=== PATIENT | female | born 1930 | race Caucasian/White ===

== ENCOUNTER → 2016-03-29 | Outpatient (CLI) | payer OTHER, MEDICARE ==
[~2016-03-29] MED LIST: ACET325T96 PO; ACET650S10 PR; ALEN70TA4 PO; BISA10SU38 PR; CHOL20009 PO; CYAN10005 PO; FERR1TAB13 PO; FERR325T51 PO; GLIM4TAB2 PO; INSDGI SC; INSUINJ4 SQ; LEVO1TAB PO; LOSA1TAB38 PO; MAGN400T6 PO; METF-383 PO; METO10SO PO; METO1TAB31 PO; METO5SOL PO; MOML PO; PANT40TA PO; POLY1POW2 PO; RBTDMUDL5 PO; SERT-234 PO; SERT25TA PO; SODIENE PR; SPIR25TA PO; SYN150 PO; WARF-283 PO; WARF2TAB8 PO; WARF4TAB8 PO; WARF5TAB7 PO
[2016-03-29 08:24] LABS: HEMATOCRIT 42.5 % (37-47); MEAN CORPUSCULAR HEMOGLOBIN 29.1 pg (25-34); MEAN PLATELET VOLUME 10.6 fL (7.4-10.4); PLATELET COUNT 184 K/uL (130-400); RED BLOOD COUNT 4.67 M/uL (4.2-5.4); WHITE BLOOD COUNT 7.57 K/uL (4.8-10.8)
== END | disposition home or self-care (01) ==
LOC: C.LABFOXDH 08:03
PROVIDERS: ATTEND Internal Medicine
DX: D50.9 Iron deficiency anemia, unspecified (principal)

== ENCOUNTER 2016-04-03 12:26 | Inpatient (IN) | payer OTHER, MEDICARE ==
[~2016-04-03] VITALS: Ht 165.1 cm; Wt 96.9 kg
[~2016-04-03 12:26] MED LIST changes: -FERR1TAB13 PO; -INSDGI SC; -METO5SOL PO; -RBTDMUDL5 PO; -SYN150 PO; -WARF2TAB8 PO; -WARF4TAB8 PO; -WARF5TAB7 PO
[2016-04-03] MEDS ORDERED: DILTIAZEM HCL 5 MG/ML 5 ML VIAL ONE (13:07)
[2016-04-03] MEDS ORDERED: SODIUM CHLORIDE 0.9% 250ML 250 ML IV STA (13:19)
[2016-04-03] MEDS ORDERED: SODIUM CHLORIDE 0.9% 1000ML 1,000 ML IV STA (13:19)
[2016-04-03 13:24] LABS: HEMATOCRIT 43.5 % (37-47); MEAN CELL VOLUME 89.9 fL (80-100); MEAN CORPUSCULAR HEMOGLOBIN 29.3 pg (25-34); MEAN CORPUSCULAR HGB CONC 32.6 g/dl (32-36); MEAN PLATELET VOLUME 10.2 fL (7.4-10.4); PLATELET COUNT 158 K/uL (130-400); RED BLOOD COUNT 4.84 M/uL (4.2-5.4); WHITE BLOOD COUNT 9.09 K/uL (4.8-10.8)
[2016-04-03 13:26] LABS: ISTAT CREATININE 0.8 mg/dl (0.6-1.3); ISTAT HEMOGLOBIN 14.6 g/dl (12.0-16.0); ISTAT IONIZED CALCIUM 1.44 mmol/l (1.12-1.32)
[2016-04-03 13:37] LABS: INR 2.9 (0.9-1.1); PARTIAL THROMBOPLASTIN RATIO 1.3; PROTHROMBIN TIME (PATIENT) 32.8 SECONDS (9.0-12.0)
[2016-04-03 13:42] LABS: BUN/CREATININE RATIO 25.3 (10-20); CALCIUM 10.4 mg/dl (8.5-10.1); CREATININE 0.95 mg/dl (0.60-1.20); POTASSIUM 4.1 mmol/L (3.5-5.1)
[2016-04-03 13:47] LABS: ALB/GLOB RATIO 0.9 (0.9-2)
--- NOTE | 2016-04-03 13:47 | DIAGNOSTIC IMAGING REPORT ---
CHEST ONE VIEW PORTABLE CLINICAL HISTORY: Atypical chest pain COMPARISON STUDY: 08/16/2015 FINDINGS: The heart is mildly enlarged. There is no overt failure. There is no lobar consolidation. There is a calcified left basilar granuloma. There is a 13 mm right midlung zone density partially obscured by overlying cardiac leads. IMPRESSION: 1. No evidence of focal pulmonary consolidation 2. Equivocal right midlung zone nodule partially obscured by overlying cardiac leads Electronically signed by: Benjamin Vann M.D. 04/03/2016 1:45 PM Dictated Date/Time: 04/03/2016 1:43 PM
[2016-04-03] MEDS ORDERED: WARF2TAB8 PO (14:00)
[2016-04-03] MEDS ORDERED: WARF5TAB7 PO ×2 (14:00)
[2016-04-03] MEDS ORDERED: METOPROLOL SUCC 25MG EXT REL TAB PO STA (14:11)
[2016-04-03] MEDS ORDERED: MAGNESIUM SULFATE 1GM / D5W 1 GM BAG IV STA (14:55)
[2016-04-03] MEDS ORDERED: ACETAMINOPHEN 650 MG SUPP PR PRN (16:45)
[2016-04-03] MEDS ORDERED: WARFARIN SOD 5 MG TAB PO SCH (16:45)
[2016-04-03] MEDS ORDERED: WARFARIN SOD 2 MG TAB PO SCH (16:45)
[2016-04-03] MEDS ORDERED: GLUCAGON FOR INJ 1 MG VIAL SQ PRN (16:45)
[2016-04-03] MEDS ORDERED: DEXTROSE 50% 50 ML SYR IV PRN (16:45)
[2016-04-03] MEDS ORDERED: ACETAMINOPHEN 325 MG TAB PO PRN (16:45)
[2016-04-03] MEDS ORDERED: ALUMINUM/MAGNESIUM/SIMETH (MAALOX MAX) 30 ML UDC PO PRN (16:45)
[2016-04-03] MEDS ORDERED: GLUCOSE 10 TABS/TUBE PO PRN (16:45)
[2016-04-03] MEDS ORDERED: GLUCOSE 40% GEL 15 GM TUBE PO PRN (16:45)
[2016-04-03] MEDS ORDERED: ONDANSETRON INJ 2 MG/ML 2 ML VIAL IV PRN (16:45)
--- NOTE | 2016-04-03 17:28 | EMERGENCY ROOM VISIT NOTE ---
History Report prepared by Omar: Dick Zheng Under the Supervision of: Dr. Eduardo Brambila M.D. First contact with patient: 13:08 Chief Complaint: CARDIAC ASSESSMENT Stated Complaint: A-FIB Nursing Triage Summary: PT HERE WITH EPISODE OF RAPID HEARTRATE WHILE AT [facility] TODAY, UP TO 170 PER STAFF. PT DENIES ANY SX, NO CHEST PAIN OR SOB. PT STATES STAFF HAS NOT BEEN GIVING HER HER MEDS. STAFF REPORTS PT IS ASLEEP WHEN SHE IS TO GET MEDS OR REFUSES MEDS History of Present Illness The patient is a 85 year old female who presents to the Emergency Room with complaints of a high heart rate starting earlier today. The patient states that she is currently in minimal discomfort. The nursing staff states that the patient was at [facility], and her heart rate was 170 bpm this morning. The nursing staff additionally states that the patient has not taken her medications for the past ten days. The patient additionally states that her appetite has been so-so recently. She notes nausea, vomiting and diarrhea that was occurring last night and this morning. Pt denies LOC, headache, fevers, chills, diaphoresis, visual changes, neck pain, chest pain, breathing difficulties, abdominal pain, back pain, melena, hematochezia, urinary symptoms , numbness, weakness, lymphadenopathy, rash, or other complaints. Source of History: patient, nursing staff Onset: this morning Position: other (global) Symptom Intensity: minimal Quality: other (high heart rate) Review of Systems See HPI for pertinent positives and negatives. A total of ten systems were reviewed and were otherwise negative. Past Medical & Surgical Medical Problems: (1) Asthmatic bronchitis with acute exacerbation (2) Atrial fibrillation (3) Atrial tachycardia (4) Atrial tachycardia (5) Bronchitis (6) Contusion of multiple sites (7) Dementia (8) Diabetes mellitus type 2 (9) Fall (10) Femur fracture, right (11) Hypomagnesemia (12) Hypothyroidism (13) Hypoxemia (14) Palpitations Family History Patient reports no known family medical history. Social History Smoking Status: Never Smoker Alcohol Use: none Drug Use: none Marital Status: Housing Status: [facility] Occupation Status: retired Current/Historical Medications Scheduled Alendronate Sodium (Fosamax), 70 MG PO WK Cholecalciferol (Vitamin D), 2,000 UNITS PO DAILY Cyanocobalamin (Vitamin B-12), 1,000 MCG PO DAILY Ferrous Sulfate (Iron Supplement), 1 TAB PO BID Glimepiride (Glimepiride), 4 MG PO BID Insulin Glargine (Lantus Solostar Pen), 25 UNITS SQ HS Levothyroxine Sodium (Synthroid), 0.137 MG PO DAILY Losartan Potassium (Cozaar), 100 MG PO DAILY Magnesium Oxide (Mag-Ox), 400 MG PO BID Metformin Hcl (Glucophage), 850 MG PO BID Metoclopramide Hcl (Reglan), 2.5 MG PO BID Metoprolol Succinate (Toprol Xl), 25 MG PO BID Pantoprazole (Protonix), 40 MG PO DAILY Polyethylene Glycol 3350 (Bulk (Polyethylene Glycol 3350), 17 GM PO DAILY Sertraline (Zoloft), 100 MG PO DAILY Sertraline Hcl (Zoloft), 25 MG PO DAILY Spironolactone (Aldactone), 12.5 MG PO DAILY Warfarin Sod (Jantoven), 2 MG PO 6XWK Warfarin Sod (Jantoven), 5 MG PO WK Warfarin Sod (Jantoven), 2.5 MG PO 6XWK Scheduled PRN Acetaminophen (Tylenol), 650 MG UT Q4 PRN for Pain or Fever Acetaminophen Tab (Tylenol), 650 MG PO Q4 PRN for PAIN 1-5 OR FEVER Bisacodyl (Dulcolax), 1 SUPP UT DAILY PRN for Constipation Magnesium Hydroxide (Milk Of Magnesia), 30 ML PO Q2D PRN for NO BM Sodium Phosphate/Biphosphate (Fleet Enema), 1 EA UT Q3D PRN for NO BM/NO RESULTS FROM MOM/SUPP Allergies Coded Allergies: Epinephrine (Verified Allergy, Mild, INCREASE HEART RATE, 04/03/16) Medroxyprogesterone (Verified Allergy, Unknown, ., 04/03/16) Physical Exam Vital Signs Date Time Temp Pulse Resp B/P Pulse Ox O2 Delivery O2 Flow Rate FiO2 04/03/16 14:59 90 16 123/66 04/03/16 14:19 90 16 127/74 98 Room Air 04/03/16 14:11 94 04/03/16 14:10 175 04/03/16 14:02 89 20 112/70 04/03/16 13:20 93 16 127/71 95 Room Air 04/03/16 13:18 98 04/03/16 13:10 180 04/03/16 13:05 95 Room Air 04/03/16 13:05 95 Room Air 04/03/16 13:03 179 16 99/73 04/03/16 12:38 36.6 97 18 114/87 97 Room Air Physical Exam GENERAL: Awake, alert, tired appearing, in no distress HENT: Normocephalic, atraumatic. Oropharynx unremarkable. EYES: Normal conjunctiva. Sclera non-icteric. NECK: Supple. No nuchal rigidity. FROM. No JVD. RESPIRATORY: Clear to auscultation. CARDIAC: Extremely tachycardic rate, normal rhythm. Extremities warm and well perfused. Pulses equal. ABDOMEN: Soft, non-distended. No tenderness to palpation. No rebound or guarding. No masses. RECTAL: Deferred. MUSCULOSKELETAL: Chest examination reveals no tenderness. The back is symmetrical on inspection without obvious abnormality. There is no CVA tenderness to palpation. No joint edema. LOWER EXTREMITIES: Calves are equal size bilaterally and non-tender. No edema. No discoloration. NEURO: Normal sensorium. No sensory or motor deficits noted. SKIN: No rash or jaundice noted. Medical Decision & Procedures ER Provider Diagnostic Interpretation: X-ray: Per my interpretation, radiologist review. CHEST ONE VIEW PORTABLE CLINICAL HISTORY: Atypical chest pain COMPARISON STUDY: 08/16/2015 FINDINGS: The heart is mildly enlarged. There is no overt failure. There is no lobar consolidation. There is a calcified left basilar granuloma. There is a 13 mm right midlung zone density partially obscured by overlying cardiac leads. IMPRESSION: 1. No evidence of focal pulmonary consolidation 2. Equivocal right midlung zone nodule partially obscured by overlying cardiac leads Electronically signed by: Benjamin Vann M.D. 04/03/2016 1:45 PM Dictated Date/Time: 04/03/2016 1:43 PM Laboratory Results 04/03/16 13:05 04/03/16 13:05 Test 04/03/16 13:05 04/03/16 13:07 04/03/16 13:14 Red Blood Count 4.84 M/uL (4.2-5.4) Mean Corpuscular Volume 89.9 fL (80-100) Mean Corpuscular Hemoglobin 29.3 pg (25-34) Mean Corpuscular Hemoglobin Concent 32.6 g/dl (32-36) RDW Standard Deviation 47.3 fL (36.4-46.3) RDW Coefficient of Variation 14.4 % (11.5-14.5) Mean Platelet Volume 10.2 fL (7.4-10.4) Prothrombin Time 32.8 SECONDS (9.0-12.0) Prothromb Time International Ratio 2.9 (0.9-1.1) Activated Partial Thromboplast Time 35.0 SECONDS (21.0-31.0) Partial Thromboplastin Ratio 1.3 Est Creatinine Clear Calc Drug Dose 51.4 ml/min Estimated GFR () 63.7 Estimated GFR (Non- 55.0 BUN/Creatinine Ratio 25.3 (10-20) Calcium Level 10.4 mg/dl (8.5-10.1) Magnesium Level 1.5 mg/dl (1.8-2.4) Total Bilirubin 0.5 mg/dl (0.2-1) Aspartate Amino Transf (AST/SGOT) 16 U/L (15-37) Alanine Aminotransferase (ALT/SGPT) 17 U/L (12-78) Alkaline Phosphatase 73 U/L (45-117) Total Creatine Kinase 91 U/L (26-192) Creatine Kinase MB 0.9 ng/ml (0.5-3.6) Creatine Kinase MB Ratio 1.0 (0-3.0) Total Protein 6.4 gm/dl (6.4-8.2) Albumin 3.1 gm/dl (3.4-5.0) Globulin 3.3 gm/dl (2.5-4.0) Albumin/Globulin Ratio 0.9 (0.9-2) Bedside Hemoglobin 14.6 g/dl (12.0-16.0) Bedside Hematocrit 43 % (37-47) Bedside Sodium 141 mEq/L (135-144) Bedside Potassium 4.1 mEq/L (3.3-5.0) Bedside Chloride 105 mEq/L (101-112) Bedside Total CO2 20 mEq/l (24-31) Anion Gap 21.0 mmol/L (16-25) Bedside Blood Urea Nitrogen 24 mg/dl (7-18) Bedside Creatinine 0.8 mg/dl (0.6-1.3) Bedside Glucose (other) 296 mg/dl (70-99) Bedside Ionized Calcium (Julien) 1.44 mmol/l (1.12-1.32) Bedside Troponin I 0.030 ng/ml (0-0.045) Laboratory results reviewed by me Medications Administered Medications (Trade) Dose Ordered Sig/Angel Route Start Time Stop Time Status Last Admin Dose Admin Diltiazem HCl 25 mg 25 mg STK-MED ONCE .ROUTE 04/03/16 13:07 04/03/16 13:08 DC 04/03/16 13:12 5 MG Sodium Chloride 250 ml @ 999 mls/hr Q16M STAT IV 04/03/16 13:19 04/03/16 13:34 DC 04/03/16 13:20 999 MLS/HR Sodium Chloride (Nss 1000ml) 1,000 ml @ 125 mls/hr Q8H STAT IV 04/03/16 13:19 04/03/16 21:18 04/03/16 13:20 125 MLS/HR Metoprolol Succinate (Toprol Xl Tab) 25 mg NOW STAT PO 04/03/16 14:11 04/03/16 14:13 DC 04/03/16 14:30 25 MG Magnesium Sulfate (Magnesium Sulfate) 2 gm NOW STAT IV 04/03/16 14:55 04/03/16 14:56 DC 04/03/16 15:41 2 GM ECG Indication: tachycardia Rate (beats per minute): 98 Rhythm: normal sinus Findings: LAFB, other (Old anterior infarct) ED Course 1307: Cardizem Inj 5mg IV 1308: The patient was evaluated in room A12. A complete history and physical exam was performed. 1310: Repeat EKG showed Ventricular tachycardia at 178 bpm, left axis deviation , lateral ST depressions which are new compared to the first, and no obvious flutter waves. 1312: Third EKG shows normal sinus rhythm at 95 bpm, left anterior fascicular block, and anterior infract, lateral st depressions are resolved, and non- specific ST abnormalities. 1319: Sodium Chloride 1000 ml @ 125 mls/hr IV, Sodium Chloride 250 ml @ 999 mls/ hr IV 1355: I reassessed the patient, and she was resting 1411: Metoprolol Succinate 25mg PO 1455: Magnesium Sulfate 2gm IV 1545: I discussed the patient's case with Eobni Joel, and he states that he was not there today, and I should call the nurse practitioner, Maria De Jesus for further information. 1548: I discussed the patient's case with Maria De Jesus Oakley NP who is in charge of the patient at [facility]. She states that the patient was having diarrhea and vomiting last night. She states that she thinks that the patient should be observed due to her dementia, and this leads her to sometimes refuse to take her medications. 1606: I discussed the patient's case with Dr. Bergman. He is going to evaluate the patient for further treatment Medical Decision Triage Nursing notes reviewed. The patient's presentation and history were concerning for nausea, vomiting diarrhea, poor oral medication intake, and tachycardia. Etiologies such as metabolic, infection, hypo/hyperglycemia, electrolyte abnormalities, cardiac sources, intracerebral event, toxicologic, neurologic, as well as others were entertained. The patient presented with concerning historical points for possible dysrhythmia. She was found to develop an SVT/atrial tachycardia in the emergency department. She has a history of A. fib and was not taking her beta marina. The patient was given a 5 mg dose of diltiazem as well as simultaneously performing a heavy forceful cough for vagal stimulation. The tachycardia resolved and her heart rate went to a sinus rhythm down into the 80s. I suspect this may have been an SVT. The patient had low magnesium. This was repleted. She was very tired she was hydrated. I did contact her primary physician who asked me to discuss the case with her nurse practitioner Maria De Jesus. There was concern for her vomiting and not taking medication also she has some dementia and occasionally refuses. She was most comfortable with her staying for hydration and medication administration and observation here overnight. Patient was in agreement. Consultation was made with internal medicine for further treatment. The chart was completed utilizing [employer] Speech voice recognition software. Grammatical errors, random word insertions, pronoun errors, and incomplete sentences are an occasional consequence of this system due to software limitations, ambient noise, and hardware issues. Any formal questions or concerns about the content, text, or information contained within the body of this dictation should be directly addressed to the physician for clarification. Consults Time Called: 1540 Consulting Physician: Eboni Joel Returned Call: 1544 I discussed the patient's case with Eboni Joel, and he states that he was not there today, and I should call the nurse practitioner, Maria De Jesus for further information. Additional Consults: Time Called: 1555 Consulted Physician: Maria De Jesus Oakley ROW [employer]OSS Returned Call: 1545 Additional Comments: I discussed the patient's case with Maria De Jesus Oakley NP who is in charge of the patient at [facility]. She states that the patient was having diarrhea and vomiting last night. She states that she thinks that the patient should be observed due to her dementia, and this leads her to sometimes refuse to take her medications. Time Called: 1602 Consulted Physician: Dr. Bergman Returned Call: 1606 Additional Comments: I discussed the patient's case with Dr. Bergman. He is going to evaluate the patient for further treatment Impression Primary Impression: SVT (supraventricular tachycardia) Additional Impressions: Hypomagnesemia Nausea vomiting and diarrhea Critical Care I have personally spent greater than 30 minutes of critical care time in the direct management of this patient. This includes bedside care, interpretation of diagnostic studies, and testing, discussion with consultants, patient, and other required patient management activities. This 30 minutes is in excess of all separately billable procedures. Scribe Attestation The scribe's documentation has been prepared under my direction and personally reviewed by me in its entirety. I confirm that the note above accurately reflects all work, treatment, procedures, and medical decision making performed by me. Departure Information Dispostion Being Evaluated By Hospitalist Roque Ngo (PCP) Problem Qualifiers
[2016-04-03 19:49] VITALS: BP 124/80; PULSE 84; TEMP 36.3; O2SAT 94; Ht 165.1 cm; Wt 96.9 kg
--- NOTE | 2016-04-03 20:36 | History and Physical ---
History & Physical Date & Time of Service: Apr 03, 2016 at 20:16 Chief Complaint: Atrail Tachycardia Primary Care Physician: Roque Lyn History of Present Illness Source: patient Pt is a 85 year old female who presents to the ER with complaints of a high heart rate starting earlier today. History is limited due to advanced dementia. Per ER and AL documentations, pt was refusing meds for past week. Staff also noted decreased appetite and N/V/D. No fevers or chills. Upon presentation to ER, pt noted to be in atrial tachycardia vs SVT. Pt was given diltiazem in addition to metoprolol which eventually converted her back to sinus. Pt noted to be in no distress. Denies any chest pain or palpitations or sob. No N/V witness in ER. Past Medical/Surgical History Medical Problems: (1) Asthmatic bronchitis with acute exacerbation Status: Resolved (2) Atrial fibrillation Status: Chronic (3) Atrial tachycardia Status: Resolved (4) Atrial tachycardia Status: Resolved (5) Bronchitis Status: Resolved (6) Contusion of multiple sites Status: Resolved (7) Dementia Status: Chronic (8) Diabetes mellitus type 2 Status: Chronic (9) Fall Status: Resolved (10) Femur fracture, right Status: Resolved (11) Hypomagnesemia Status: Resolved (12) Hypothyroidism Status: Chronic (13) Hypoxemia Status: Resolved (14) Palpitations Status: Resolved Family History Patient reports no known family medical history. Social History Smoking Status: Never Smoker Drug Use: none Marital Status: Occupational Status: retired Immunizations History of Influenza Vaccine: Yes Influenza Vaccine Date: Jan 09, 2012 History of Tetanus Vaccine?: Yes History of Pneumococcal: Unknown History of Hepatitis B Vaccine: No Allergies Coded Allergies: Epinephrine (Verified Allergy, Mild, INCREASE HEART RATE, 04/03/16) Medroxyprogesterone (Verified Allergy, Unknown, ., 04/03/16) Home Medications Scheduled Alendronate Sodium (Fosamax), 70 MG PO WK Cholecalciferol (Vitamin D), 2,000 UNITS PO DAILY Cyanocobalamin (Vitamin B-12), 1,000 MCG PO DAILY Ferrous Sulfate (Iron Supplement), 1 TAB PO BID Glimepiride (Glimepiride), 4 MG PO BID Insulin Glargine (Lantus Solostar Pen), 25 UNITS SQ HS Levothyroxine Sodium (Synthroid), 0.137 MG PO DAILY Losartan Potassium (Cozaar), 100 MG PO DAILY Magnesium Oxide (Mag-Ox), 400 MG PO BID Metformin Hcl (Glucophage), 850 MG PO BID Metoclopramide Hcl (Reglan), 2.5 MG PO BID Metoprolol Succinate (Toprol Xl), 25 MG PO BID Pantoprazole (Protonix), 40 MG PO DAILY Polyethylene Glycol 3350 (Bulk (Polyethylene Glycol 3350), 17 GM PO DAILY Sertraline (Zoloft), 100 MG PO DAILY Sertraline Hcl (Zoloft), 25 MG PO DAILY Spironolactone (Aldactone), 12.5 MG PO DAILY Warfarin Sod (Jantoven), 2 MG PO 6XWK Warfarin Sod (Jantoven), 5 MG PO WK Warfarin Sod (Jantoven), 2.5 MG PO 6XWK Scheduled PRN Acetaminophen (Tylenol), 650 MG GA Q4 PRN for Pain or Fever Acetaminophen Tab (Tylenol), 650 MG PO Q4 PRN for PAIN 1-5 OR FEVER Bisacodyl (Dulcolax), 1 SUPP GA DAILY PRN for Constipation Magnesium Hydroxide (Milk Of Magnesia), 30 ML PO Q2D PRN for NO BM Sodium Phosphate/Biphosphate (Fleet Enema), 1 EA GA Q3D PRN for NO BM/NO RESULTS FROM MOM/SUPP Review of Systems Constitutional: No chills, No fever Cardiovascular: No chest pain, No orthopnea Abdomen: No diarrhea, No nausea, No pain, No vomiting Musculoskeletal: No joint pain, No muscle pain Genitourinary - Female: No dysuria, No urinary frequency, No urinary urgency Neurologic: No paralysis, No weakness Physical Exam Vital Signs Date Time Temp Pulse Resp B/P Pulse Ox O2 Delivery O2 Flow Rate FiO2 04/03/16 19:49 36.3 84 18 124/80 94 Room Air 04/03/16 18:47 82 20 137/80 93 Room Air 04/03/16 17:26 83 17 04/03/16 16:58 136/71 04/03/16 16:26 85 21 04/03/16 15:59 126/71 04/03/16 15:26 89 26 04/03/16 14:59 90 16 123/66 04/03/16 14:58 136/67 04/03/16 14:55 123/66 04/03/16 14:29 139/72 04/03/16 14:26 89 21 04/03/16 14:23 117/76 04/03/16 14:19 90 16 127/74 98 Room Air 04/03/16 14:18 118/74 04/03/16 14:13 128/74 04/03/16 14:11 94 04/03/16 14:10 175 04/03/16 14:08 120/78 04/03/16 14:03 124/72 04/03/16 14:02 89 20 112/70 04/03/16 13:58 112/70 04/03/16 13:53 123/66 04/03/16 13:48 126/66 04/03/16 13:43 118/77 04/03/16 13:38 124/68 04/03/16 13:34 121/58 04/03/16 13:28 139/70 04/03/16 13:26 90 25 93 04/03/16 13:23 142/75 04/03/16 13:20 93 16 127/71 95 Room Air 04/03/16 13:18 125/78 04/03/16 13:18 98 04/03/16 13:16 127/71 04/03/16 13:13 143/80 04/03/16 13:10 180 04/03/16 13:08 139/101 04/03/16 13:05 95 Room Air 04/03/16 13:05 95 Room Air 04/03/16 13:03 179 16 99/73 04/03/16 12:59 99/73 04/03/16 12:38 36.6 97 18 114/87 97 Room Air General Appearance: WD/WN, no apparent distress Neck: supple, no adenopathy Respiratory/Chest: lungs clear, normal breath sounds Cardiovascular: no edema, no gallop, + tachycardia Abdomen/GI: non tender, soft Neurologic/Psych: alert, + disoriented Diagnostics Laboratory Results Results Past 24 Hours Test 04/03/16 13:05 04/03/16 13:07 04/03/16 13:14 Range/Units White Blood Count 9.09 4.8-10.8 K/uL Red Blood Count 4.84 4.2-5.4 M/uL Hemoglobin 14.2 12.0-16.0 g/dL Hematocrit 43.5 37-47 % Mean Corpuscular Volume 89.9 80-100 fL Mean Corpuscular Hemoglobin 29.3 25-34 pg Mean Corpuscular Hemoglobin Concent 32.6 32-36 g/dl RDW Standard Deviation 47.3 36.4-46.3 fL RDW Coefficient of Variation 14.4 11.5-14.5 % Platelet Count 158 130-400 K/uL Mean Platelet Volume 10.2 7.4-10.4 fL Prothrombin Time 32.8 9.0-12.0 SECONDS Prothromb Time International Ratio 2.9 0.9-1.1 Activated Partial Thromboplast Time 35.0 21.0-31.0 SECONDS Partial Thromboplastin Ratio 1.3 Sodium Level 141 136-145 mmol/L Potassium Level 4.1 3.5-5.1 mmol/L Chloride Level 110 98-107 mmol/L Carbon Dioxide Level 21 21-32 mmol/L Anion Gap 10.0 21.0 16-25 mmol/L Blood Urea Nitrogen 24 7-18 mg/dl Creatinine 0.95 0.60-1.20 mg/dl Est Creatinine Clear Calc Drug Dose 51.4 ml/min Estimated GFR () 63.7 Estimated GFR (Non- 55.0 BUN/Creatinine Ratio 25.3 10-20 Random Glucose 282 70-99 mg/dl Calcium Level 10.4 8.5-10.1 mg/dl Magnesium Level 1.5 1.8-2.4 mg/dl Total Bilirubin 0.5 0.2-1 mg/dl Aspartate Amino Transf (AST/SGOT) 16 15-37 U/L Alanine Aminotransferase (ALT/SGPT) 17 12-78 U/L Alkaline Phosphatase 73 45-117 U/L Total Creatine Kinase 91 26-192 U/L Creatine Kinase MB 0.9 0.5-3.6 ng/ml Creatine Kinase MB Ratio 1.0 0-3.0 Total Protein 6.4 6.4-8.2 gm/dl Albumin 3.1 3.4-5.0 gm/dl Globulin 3.3 2.5-4.0 gm/dl Albumin/Globulin Ratio 0.9 0.9-2 Bedside Hemoglobin 14.6 12.0-16.0 g/dl Bedside Hematocrit 43 37-47 % Bedside Sodium 141 135-144 mEq/L Bedside Potassium 4.1 3.3-5.0 mEq/L Bedside Chloride 105 101-112 mEq/L Bedside Total CO2 20 24-31 mEq/l Bedside Blood Urea Nitrogen 24 7-18 mg/dl Bedside Creatinine 0.8 0.6-1.3 mg/dl Bedside Glucose (other) 296 70-99 mg/dl Bedside Ionized Calcium (Julien) 1.44 1.12-1.32 mmol/l Bedside Troponin I 0.030 0-0.045 ng/ml Microbiology Results 04/03/16 MRSA DNA Surveillance Screen, Fabiana Batch Pending Impression Assessment and Plan Pt is a 85 yo female who presents from [facility] with N/V and decreased appetite for past 7 days who was refusing medications and found to be in atrial tachycardia upon arrival to ER Atrial tachycardia/SVT - converted to sinus with cardizem and metoprolol given in ER. Likely induced from missed meds. Cont metoprolol XL 25 mg PO BID. DECLAN likely from dehydration - Start on IVF at 75 cc/hr. Trend PRP Hypomagenesemia - Replace PRN Atrial fibrillation - Cont coumadin and metoprolol. INR 2.9 on admission Insulin-dependent diabetes mellitus - Cont ISS + lantus. Accuchecks Gastroesophageal reflux disease. Primary hypercalcemia with elevated parathyroid hormone. Hypothyroidism - Cont synthroid Dementia. Advanced Directives Existing Advance Directive: Yes Existing Living Will: Yes Existing Power of Rest Room Matron: Yes VTE Prophylaxis VTE Risk Assessment Done? Y/N: Yes Risk Level: Moderate
[2016-04-03] MEDS ORDERED: INSULIN GLARGINE SOLOSTAR 100 UNITS/ML 3 ML PEN SC SCH (21:00)
[2016-04-03] MEDS: MAGNESIUM OXIDE 400 MG TAB PO SCH (21:32)
[2016-04-03] MEDS: FERROUS SULFATE 325 MG TAB PO SCH (21:32)
[2016-04-03] MEDS: METOCLOPRAMIDE HCL SYRUP 5 MG/5 ML PO SCH (21:32)
[2016-04-03] MEDS: METOPROLOL SUCC 25MG EXT REL TAB PO SCH (21:32)
[2016-04-03] MEDS: SODIUM CHLORIDE 0.9% 1000ML 1,000 ML IV SCH (21:33)
[2016-04-03] MEDS: INSULIN ASPART 100 UNITS/ML 3 ML PEN SC SCH (21:36)
[2016-04-03 23:04] VITALS: BP 122/75; PULSE 77; TEMP 36.4; O2SAT 93
[2016-04-04] VITALS (7 sets, daily range): BP systolic 111–166; BP diastolic 59–83; PULSE 65–72; TEMP 36.7–36.9; O2SAT 16–95
[2016-04-04 03:47] LABS: URINE APPEARANCE TURBID (CLEAR); URINE BILIRUBIN NEG (NEG); URINE COLOR DK YELLOW; URINE EPITHELIAL CELL AUTO 20-30 /lpf (0-5); URINE NITRITE NEG (NEG); URINE SPECIFIC GRAVITY 1.025 (1.000-1.030); UROBILINOGEN NEG (NEG)
[2016-04-04 03:49] LABS: MANUAL MICROSCOPIC REQUIRED? NO; REVIEW REQ? YES
[2016-04-04 04:04] LABS: ZZURINE CULT IF INDIC CATH NO
[2016-04-04] MEDS ORDERED: LEVOTHYROXINE 137 MCG TAB PO SCH (06:00)
[2016-04-04 06:46] LABS: ESTIMATED AVERAGE GLUCOSE 169 mg/dl; HA1C FLAG Normal (Normal)
[2016-04-04 06:55] LABS: BUN/CREATININE RATIO 21.7 (10-20); CALCIUM 9.6 mg/dl (8.5-10.1); CREATININE 0.8 mg/dl (0.60-1.20)
[2016-04-04] MEDS: MAGNESIUM OXIDE 400 MG TAB PO SCH (07:47)
[2016-04-04] MEDS: INSULIN ASPART 100 UNITS/ML 3 ML PEN SC SCH ×2 (07:47→11:00)
[2016-04-04] MEDS: FERROUS SULFATE 325 MG TAB PO SCH (07:49)
[2016-04-04] MEDS: METOCLOPRAMIDE HCL SYRUP 5 MG/5 ML PO SCH (07:50)
[2016-04-04] MEDS: METOPROLOL SUCC 25MG EXT REL TAB PO SCH (07:50)
--- NOTE | 2016-04-04 08:06 | Clinical Documentation Query ---
DAVID Sanders : CLINICAL DOCUMENTATION QUERY Patient is an 85 year old female admitted with atrial tachycardia/SVT. Heart rates to nearly 180 bpm. Serum troponin values abnormal at 0.052/0.051 ng/ml. Congruent with this is the lateral ST depression noted on EKG while in SVT and the resolution thereof with conversion back to SR. Please clarify as clinically appropriate as this directly affects DRG assignment. In your clinical opinion is this patient being managed for: ( x ) Myocardial demand ischemia ( ) Other explanation of clinical findings (Please Explain) ( ) Unable to determine (Please Define) ( ) Need to Discuss ( ) Not Agree The medical record reflects the following clinical findings, treatment, and risk factors. Clinical Indicators: As above Treatment: Toprol XL, telemetry, serial chemistries, EKG's. Risk Factors: N/V, failure to take prescribed medications. Please clarify and document your clinical opinion in the progress notes and discharge summary. Terms such as "probable", "suspected", "likely", "questionable", "possible", or "still to be ruled out" are acceptable. IF IN AGREEMENT, YOU MUST DOCUMENT ABOVE DIAGNOSTIC STATEMENT IN DAILY PROGRESS NOTES AND DISCHARGE SUMMARY. This document is not part of the patient's record. Thank You, Jerrell Davis, RN [phone]
[2016-04-04] MEDS ORDERED: LOSARTAN POTASSIUM 50 MG TAB PO SCH (09:00)
[2016-04-04] MEDS ORDERED: SPIRONOLACTONE 25 MG TAB PO SCH (09:00)
[2016-04-04] MEDS ORDERED: SERTRALINE HCL 50 MG TAB PO SCH (09:00)
[2016-04-04] MEDS ORDERED: SERTRALINE HCL 100 MG TAB PO SCH (09:00)
[2016-04-04] MEDS ORDERED: PANTOprazole SOD 40 MG TAB PO SCH (09:00)
[2016-04-04] MEDS ORDERED: CYANOCOBALAMIN 500 MCG TAB (VIT B-12) PO SCH (09:00)
--- NOTE | 2016-04-04 10:11 | Discharge Instructions ---
Discharge Instructions Admission Reason for Admission: Atrail Tachycardia Discharge Discharge Diagnosis / Problem: Supraventricular tachycardia, resolved Discharge Goals Goal(s): Decrease discomfort, Improve function, Improve disease control Activity Recommendations Activity Level: Assistance Required Lifting Limitations: none Exercise/Sports Limitations: as tolerated Shower/Bathe: no limitations . Additional Information Patient informed of condition: Yes Advance Directives: Yes DNR: Yes Level of Care: Skilled Communicable Disease: No Prognosis: Stable Oxygen at (LPM): no Luna Catheter: No Instructions / Follow-Up Instructions / Follow-Up Medications: no changes, patient took all her medications and ate all of her meals SVT: was in SVT in the ED and converted quickly with Cardizem and Lopressor IV, one dose each. Observed on monitor and remained in NSR in the 60-70's, took her Toprol in the morning in addition to all of her other medications. Evaluated by therapy, cleared to return to personal care FOLLOW UP - Dr. Dukes in one week Current Hospital Diet Patient's current hospital diet: Diabetes Type 2 Diet Discharge Diet Recommended Diet: AHA Diet (Heart Healthy), Diabetes Type 2 Diet Procedures Procedures Performed: none Pending Studies Studies pending at discharge: no Physician Orders On Transfer Vital Signs: per protocol POLST Discussion: Not Applicable Laboratory Results Hemoglobin A1c Test 04/04/16 06:08 Range/Units Estimated Average Glucose 169 mg/dl Hemoglobin A1c 7.5 H 4.5-5.6 % Medical Emergencies . Who to Call and When: Medical Emergencies: If at any time you feel your situation is an emergency, please call 911 immediately. . Non-Emergent Contact Non-Emergency issues call your: Primary Care Provider Call Non-Emergent contact if: you have a fever, you have any medication questions . . "Provider Documentation" section prepared by Vern Su. Core Measure Problem Core Measures: None [place] Drug Monitoring Program Search Results: no issues identified
[2016-04-04] MEDS: SODIUM CHLORIDE 0.9% 1000ML 1,000 ML IV SCH (10:28)
--- NOTE | 2016-04-04 13:51 | Discharge Summary ---
Discharge Summary Admission Date: Apr 03, 2016 at 16:40 Discharge Date: Apr 04, 2016 Discharge Disposition: residential facility Principal Diagnosis: SVT, resolved Problems/Secondary Diagnoses: Acute gastroenteritis Dementia Immunizations: Have You Had Influenza Vaccine: Yes Influenza Vaccine Date: Jan 09, 2012 History of Tetanus Vaccine?: Yes History of Pneumococcal: Unknown History of Hepatitis B Vaccine: No Procedures: none Consultations: none Medication Reconciliation Continued Medications: Acetaminophen (Tylenol) 650 Mg Supp 650 MG WY Q4 PRN for Pain or Fever Acetaminophen Tab (Tylenol) 325 Mg Tab 650 MG PO Q4 PRN for PAIN 1-5 OR FEVER, TAB MAX 3 GM APAP A DAY Alendronate Sodium (Fosamax) 70 Mg Tab 70 MG PO WK, TAB EVERY FRIDAY Bisacodyl (Dulcolax) 10 Mg Sup 1 SUPP WY DAILY PRN for Constipation, SUP IF MOM INEFFETIVE Cholecalciferol (Vitamin D) 2,000 Unit Tab 2000 UNITS PO DAILY Cyanocobalamin (Vitamin B-12) 1,000 Mcg Tab 1000 MCG PO DAILY, TAB Ferrous Sulfate (Iron Supplement) 325 Mg Tab 1 TAB PO BID for 30 Days, #60 TAB 3 Refills Glimepiride (Glimepiride) 4 Mg Tab 4 MG PO BID Insulin Glargine (Lantus Solostar Pen) 100 Unit/ Inj 25 UNITS SQ HS Levothyroxine Sodium (Synthroid) 0.137 Mg Tab 0.137 MG PO DAILY, TAB Losartan Potassium (Cozaar) 100 Mg Tab 100 MG PO DAILY, TAB Magnesium Hydroxide (Milk Of Magnesia) 30 Ml Susp 30 ML PO Q2D PRN for NO BM, ML Magnesium Oxide (Mag-Ox) 400 Mg Tab 400 MG PO BID, TAB Metformin Hcl (Glucophage) 850 Mg Tab 850 MG PO BID, TAB Metoclopramide Hcl (Reglan) 5 Mg/5 Ml Syrp 2.5 MG PO BID Metoprolol Succinate (Toprol Xl) 25 Mg Tab 25 MG PO BID, #30 TAB Pantoprazole (Protonix) 40 Mg Tab 40 MG PO DAILY, #30 TAB Polyethylene Glycol 3350 (Bulk (Polyethylene Glycol 3350) 1 Pow Pow 17 GM PO DAILY, #255 GM Sertraline (Zoloft) 100 Mg Tab 100 MG PO DAILY, TAB Sertraline Hcl (Zoloft) 25 Mg Tab 25 MG PO DAILY, TAB ALONG WITH 100MG TAB Sodium Phosphate/Biphosphate (Fleet Enema) Blank 1 EA WY Q3D PRN for NO BM/NO RESULTS FROM MOM/SUPP, BTL Spironolactone (Aldactone) 25 Mg Tab 12.5 MG PO DAILY, TAB Warfarin Sod (Jantoven) 2 Mg Tab 2 MG PO 6XWK, TAB takes daily except for mondays Warfarin Sod (Jantoven) 5 Mg Tab 5 MG PO WK, TAB takes weekly on friday Warfarin Sod (Jantoven) 5 Mg Tab 2.5 MG PO 6XWK, TAB takes with 2 mg tablet to equal 4.5mg daily except for friday Discharge Exam Patient has been in NSR since converting shortly after admission. No SVT on monitor today. She is tolerating her meals, taking all of her oral medications. 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 She ate all of her breakfast and lunch, no nausea or vomiting. At this point would recommend that she return to personal care facility. Review of Systems: Constitutional: No chills, No fatigue, No fever, No problem reported, No sweats, No weakness, No weight loss Eyes: No diplopia, No discharge, No eye pain, No problem reported, No redness, No worsening of vision ENT: No dental problems, No hearing loss, No nasal symptoms, No problem reported, No sore throat, No tinnitus, No trouble swallowing, No unusual epistaxis Respiratory: No cough, No dyspnea at rest, No dyspnea on exertion, No hemoptysis, No problem reported, No shortness of breath, No sputum, No wheezing Cardiovascular: No PND, No chest pain, No claudication, No edema, No orthopnea, No palpitations, No problem reported Abdomen: No GI bleeding, No constipation, No diarrhea, No nausea, No pain, No problem reported, No vomiting Musculoskeletal: + joint pain (knees, chronic), No calf pain, No muscle pain , No swelling Genitourinary - Female: No dysuria, No urinary frequency, No urinary incontinence, No urinary retention, No urinary urgency Neurologic: + balance problems, + memory loss, No numbness/tingling, No paralysis, No vertigo, No weakness Psychiatric: No anhedonism, No anxiety, No depression symptoms, No insomnia , No problem reported, No substance abuse Endocrine: No excessive thirst, No excessive urination, No fatigue, No problem reported Hematologic / Lymphatic: No abnormal bleeding/bruising, No clotting problems , No night sweats, No problem reported, No swollen lymph nodes Integumentary: No bleeding, No color change, No itch, No new/changing skin lesions, No problem reported, No rash Physical Exam: General Appearance: WD/WN, no apparent distress Eyes: normal inspection, EOMI, sclerae normal ENT: normal ENT inspection, hearing grossly normal, pharynx normal Neck: supple, no adenopathy, no JVD, trachea midline Respiratory/Chest: chest non-tender, lungs clear, normal breath sounds, no respiratory distress, no accessory muscle use Cardiovascular: regular rate, rhythm, no edema, no gallop, no JVD, no murmur , normal peripheral pulses Abdomen / GI: normal bowel sounds, non tender, soft, no organomegaly Extremities: normal inspection, no calf tenderness, normal capillary refill , no pedal edema, normal range of motion 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 Likely induced from missed meds. Cont metoprolol XL 25 mg PO BID. today she took all of her morning medications including metoprolol she has remained in NSR in the 60-70's on the monitor since admission she is eating well, recommend return to personal care DECLAN likely from dehydration - treated with NSS at 75 cc/hr, resolved today, Cr down to 0.8 Demand ischemia due to tachycardia: minimal elevation in troponin on admission, due to HR in the 150-170's no chest pain, no EKG changes, now back in NSR, no further work up needed Reported gastroenteritis: no further N/V while admitted, eating full meals, no diarrhea Hypomagenesemia - Replaced Atrial fibrillation - Cont coumadin and metoprolol. INR 2.9 on admission Insulin-dependent diabetes mellitus - Cont ISS + lantus. Accuchecks Gastroesophageal reflux disease. Primary hypercalcemia with elevated parathyroid hormone. Hypothyroidism - Cont synthroid Dementia. Total Time Spent: Greater than 30 minutes This includes examination of the patient, discharge planning, medication reconciliation, and communication with other providers. Discharge Instructions Please refer to the electronic Patient Visit Report (Discharge Instructions) for additional information. Follow-Up Dr. Dukes in one week Additional Copies To Roque Lyn; Lv Dukes M.D.
[2016-04-04] MEDS ORDERED: WARFARIN PO SCH ×2 (16:00)
[2016-04-08] MEDS ORDERED: WARFARIN SOD 5 MG TAB PO SCH (16:00)
== END 2016-04-04 15:29 | disposition home or self-care (01) | DRG 309 ==
LOC: ENRESERVDT → ENRESERVTM → EDBD 12:26 → C.EDA 12:27 → C.2T 16:40
PROVIDERS: ADMIT Hospitalist; ATTEND Internal Medicine
DX: I47.1 Supraventricular tachycardia (principal); N17.9 Acute kidney failure, unspecified; I24.8 Other forms of acute ischemic heart disease; K52.9 Noninfective gastroenteritis and colitis, unspecified; I48.91 Unspecified atrial fibrillation; E86.0 Dehydration; E83.42 Hypomagnesemia; E21.3 Hyperparathyroidism, unspecified; E03.9 Hypothyroidism, unspecified; E11.9 Type 2 diabetes mellitus without complications; K21.9 Gastro-esophageal reflux disease without esophagitis; F03.90 Unspecified dementia, unspecified severity, without behavioral disturbance, psychotic disturbance, mood disturbance, and anxiety; M17.0 Bilateral primary osteoarthritis of knee; Z99.3 Dependence on wheelchair; Z91.14 Patient's other noncompliance with medication regimen; Z79.83 Long term (current) use of bisphosphonates; Z79.84 Long term (current) use of oral hypoglycemic drugs; Z79.4 Long term (current) use of insulin; Z79.01 Long term (current) use of anticoagulants; Z79.899 Other long term (current) drug therapy

== ENCOUNTER → 2016-04-15 | Outpatient (CLI) | payer OTHER, MEDICARE ==
[~2016-04-15] MED LIST changes: +FERR1TAB13 PO; +INSDGI SC; +METO5SOL PO; +RBTDMUDL5 PO; +SYN150 PO; -WARF-283 PO; +WARF2TAB8 PO; +WARF4TAB8 PO; +WARF5TAB7 PO
[2016-04-15 10:03] LABS: INR 2.8 (0.9-1.1); PROTHROMBIN TIME (PATIENT) 31.5 SECONDS (9.0-12.0)
== END | disposition home or self-care (01) ==
LOC: C.LABFOXDH 08:53
PROVIDERS: ATTEND Internal Medicine
DX: I82.509 Chronic embolism and thrombosis of unspecified deep veins of unspecified lower extremity (principal)

== ENCOUNTER → 2016-04-29 | Outpatient (CLI) | payer OTHER, MEDICARE ==
[2016-04-29 09:53] LABS: HEMATOCRIT 40.1 % (37-47); MEAN CORPUSCULAR HGB CONC 31.2 g/dl (32-36); MEAN PLATELET VOLUME 10.7 fL (7.4-10.4); PLATELET COUNT 177 K/uL (130-400); RED BLOOD COUNT 4.31 M/uL (4.2-5.4); WHITE BLOOD COUNT 6.85 K/uL (4.8-10.8)
[2016-04-29 10:07] LABS: INR 3.1 (0.9-1.1); PROTHROMBIN TIME (PATIENT) 34.6 SECONDS (9.0-12.0)
== END | disposition home or self-care (01) ==
LOC: C.LABFOXDH 09:11
PROVIDERS: ATTEND Internal Medicine
DX: I48.91 Unspecified atrial fibrillation (principal); D50.9 Iron deficiency anemia, unspecified

== ENCOUNTER → 2016-05-13 | Outpatient (CLI) | payer OTHER, MEDICARE ==
[2016-05-13 10:47] LABS: INR 3.7 (0.9-1.1); PROTHROMBIN TIME (PATIENT) 41.7 SECONDS (9.0-12.0)
== END | disposition home or self-care (01) ==
LOC: C.LABFOXDH 09:53
PROVIDERS: ATTEND Internal Medicine
DX: I48.91 Unspecified atrial fibrillation (principal)

== ENCOUNTER → 2016-05-20 | Outpatient (CLI) | payer OTHER, MEDICARE ==
[2016-05-20 10:22] LABS: INR 1.6 (0.9-1.1); PROTHROMBIN TIME (PATIENT) 17.8 SECONDS (9.0-12.0)
== END | disposition home or self-care (01) ==
LOC: C.LABFOXDH 09:33
PROVIDERS: ATTEND Nurse Practitioner Family
DX: I82.509 Chronic embolism and thrombosis of unspecified deep veins of unspecified lower extremity (principal)

== ENCOUNTER → 2016-05-27 | Outpatient (CLI) | payer OTHER, MEDICARE ==
[2016-05-27 10:15] LABS: HEMATOCRIT 43.9 % (37-47); MEAN CORPUSCULAR HEMOGLOBIN 29.4 pg (25-34); MEAN CORPUSCULAR HGB CONC 31.7 g/dl (32-36); MEAN PLATELET VOLUME 11.3 fL (7.4-10.4); PLATELET COUNT 191 K/uL (130-400); RED BLOOD COUNT 4.72 M/uL (4.2-5.4); WHITE BLOOD COUNT 8.97 K/uL (4.8-10.8)
[2016-05-27 10:33] LABS: INR 1.8 (0.9-1.1); PROTHROMBIN TIME (PATIENT) 19.8 SECONDS (9.0-12.0)
== END | disposition home or self-care (01) ==
LOC: C.LABFOXDH 09:33
PROVIDERS: ATTEND Internal Medicine
DX: I82.509 Chronic embolism and thrombosis of unspecified deep veins of unspecified lower extremity (principal); D50.9 Iron deficiency anemia, unspecified

== ENCOUNTER → 2016-06-03 | Outpatient (CLI) | payer OTHER, MEDICARE ==
[2016-06-03 09:55] LABS: INR 2.4 (0.9-1.1); PROTHROMBIN TIME (PATIENT) 26.8 SECONDS (9.0-12.0)
== END | disposition home or self-care (01) ==
LOC: C.LABFOXDH 09:07
PROVIDERS: ATTEND Internal Medicine
DX: I48.91 Unspecified atrial fibrillation (principal)

== ENCOUNTER → 2016-06-17 | Outpatient (CLI) | payer OTHER, MEDICARE ==
[2016-06-17 08:49] LABS: INR 2.4 (0.9-1.1); PROTHROMBIN TIME (PATIENT) 26.6 SECONDS (9.0-12.0)
== END | disposition home or self-care (01) ==
LOC: C.LABFOXDH 07:50
PROVIDERS: ATTEND Internal Medicine
DX: I82.509 Chronic embolism and thrombosis of unspecified deep veins of unspecified lower extremity (principal)

== ENCOUNTER → 2016-07-15 | Outpatient (CLI) | payer OTHER, MEDICARE ==
[~2016-07-15] MED LIST changes: +CEPH500C PO; +HYDR-5688 PO; +METO-478 PO; -METO1TAB31 PO
[2016-07-15 10:45] LABS: INR 1.6 (0.9-1.1)
== END | disposition home or self-care (01) ==
LOC: C.LABFOXDH 10:04
PROVIDERS: ATTEND Internal Medicine
DX: I82.509 Chronic embolism and thrombosis of unspecified deep veins of unspecified lower extremity (principal)

== ENCOUNTER → 2016-07-30 | Outpatient (CLI) | payer OTHER, MEDICARE ==
[2016-07-30 10:10] LABS: INR 1.6 (0.9-1.1); PROTHROMBIN TIME (PATIENT) 17.4 SECONDS (9.0-12.0)
== END ==
LOC: C.LABFOXDH 09:25
PROVIDERS: ATTEND Internal Medicine
DX: I82.509 Chronic embolism and thrombosis of unspecified deep veins of unspecified lower extremity (principal)

== ENCOUNTER → 2016-08-13 | Outpatient (CLI) | payer OTHER, MEDICARE ==
[2016-08-13 11:18] LABS: INR 2.1 (0.9-1.1); PROTHROMBIN TIME (PATIENT) 22.8 SECONDS (9.0-12.0)
== END | disposition home or self-care (01) ==
LOC: C.LABFOXDH 09:41
PROVIDERS: ATTEND Internal Medicine
DX: I82.509 Chronic embolism and thrombosis of unspecified deep veins of unspecified lower extremity (principal)

== ENCOUNTER → 2016-09-02 | Outpatient (CLI) | payer OTHER, MEDICARE ==
[2016-09-02 10:45] LABS: ALT/SGPT 14 U/L (12-78); AST/SGOT 8 U/L (15-37); BLOOD UREA NITROGEN 20 mg/dl (7-18); BUN/CREATININE RATIO 20.3 (10-20); CALCIUM 10.4 mg/dl (8.5-10.1); CARBON DIOXIDE 25 mmol/L (21-32); CHLORIDE 112 mmol/L (98-107); GLUCOSE 128 mg/dl (70-99); MAGNESIUM 1.9 mg/dl (1.8-2.4); POTASSIUM 4.4 mmol/L (3.5-5.1); SODIUM 145 mmol/L (136-145)
[2016-09-02 10:48] LABS: INR 1.8 (0.9-1.1); PROTHROMBIN TIME (PATIENT) 19.8 SECONDS (9.0-12.0)
[2016-09-02 10:55] LABS: ESTIMATED AVERAGE GLUCOSE 154 mg/dl; HA1C FLAG Normal (Normal)
[2016-09-02 10:56] LABS: ALKALINE PHOSPHATASE 80 U/L (45-117)
== END | disposition home or self-care (01) ==
LOC: C.LABFOXDH 08:53
PROVIDERS: ATTEND Internal Medicine
DX: I48.91 Unspecified atrial fibrillation (principal); E10.9 Type 1 diabetes mellitus without complications; E83.42 Hypomagnesemia

== ENCOUNTER → 2016-09-23 | Outpatient (CLI) | payer OTHER, MEDICARE ==
[~2016-09-23] MED LIST changes: -CEPH500C PO; -HYDR-5688 PO; -METO-478 PO; +METO1TAB31 PO
[2016-09-23 09:24] LABS: INR 2.3 (0.9-1.1)
== END | disposition home or self-care (01) ==
LOC: C.LABFOXDH 08:09
PROVIDERS: ATTEND Internal Medicine
DX: I48.91 Unspecified atrial fibrillation (principal)

== ENCOUNTER → 2016-10-14 | Outpatient (CLI) | payer OTHER, MEDICARE ==
[2016-10-14 08:50] LABS: INR 2.2 (0.9-1.1); PROTHROMBIN TIME (PATIENT) 24.2 SECONDS (9.0-12.0)
== END | disposition home or self-care (01) ==
LOC: C.LABFOXDH 08:18
PROVIDERS: ATTEND Internal Medicine
DX: I82.509 Chronic embolism and thrombosis of unspecified deep veins of unspecified lower extremity (principal)

== ENCOUNTER → 2016-11-11 | Outpatient (CLI) | payer OTHER, MEDICARE ==
[2016-11-11 10:45] LABS: INR 2.2 (0.9-1.1); PROTHROMBIN TIME (PATIENT) 24.6 SECONDS (9.0-12.0)
== END | disposition home or self-care (01) ==
LOC: C.LABFOXDH 09:51
PROVIDERS: ATTEND Nurse Practitioner Family
DX: I48.91 Unspecified atrial fibrillation (principal)

== ENCOUNTER 2016-11-14 13:17 | Emergency (ER) | payer OTHER, MEDICARE ==
[~2016-11-14] VITALS: Ht 177.8 cm; Wt 100.4 kg
[~2016-11-14 13:17] MED LIST changes: -FERR1TAB13 PO; -INSDGI SC; -METO5SOL PO; -RBTDMUDL5 PO; -SYN150 PO; -WARF4TAB8 PO
[2016-11-14 13:29] VITALS: Ht 177.8 cm; Wt 100.4 kg
--- NOTE | 2016-11-14 13:42 | EMERGENCY ROOM VISIT NOTE ---
History Report prepared by Omar: Perry Dunham Under the Supervision of: Dr. Norman Reynolds M.D. First contact with patient: 13:33 Chief Complaint: FALL Stated Complaint: FALL/ RT SHOULDER, FOOT PAIN / [place] History of Present Illness The patient is an 85 year old female with a history of dementia who presents to the Emergency Room from [facility] after a sudden mechanical fall yesterday. The patient says that she was told that she fell out of her recliner , but she does not remember the fall or when it happened. She says that currently she feels okay, but has right big toe and right arm pain. The patient notes right shoulder soreness as well. She adds that her pain is worsened with movement. The patient states that her left side is not painful. She denies any knee pain. She also denies hitting her head. Per the nursing staff, Eboni feels that the patient needs to be examined, especially after the bruising and swelling that started overnight. The patient noted to the staff that she "could not move" earlier today. She usually moves around in a wheelchair. History limited given patient's dementia. Source of History: patient, nursing staff History Limited By: dementia Onset: Yesterday Position: other (global - fall) Quality: other (mechanical - fell out of recliner) Timing: other (sudden) Note: Associated symptoms: Right big toe pain, right arm pain, right shoulder soreness. Denies knee pain or hitting head. Review of Systems See HPI for pertinent positives and negatives. A total of ten systems were reviewed and were otherwise negative. Past Medical & Surgical Medical Problems: (1) Asthmatic bronchitis with acute exacerbation (2) Atrial fibrillation (3) Atrial tachycardia (4) Atrial tachycardia (5) Bronchitis (6) Contusion of multiple sites (7) Dementia (8) Diabetes mellitus type 2 (9) Fall (10) Femur fracture, right (11) Hypomagnesemia (12) Hypothyroidism (13) Hypoxemia (14) Palpitations Family History Patient reports no known family medical history. Social History Smoking Status: Former Smoker Alcohol Use: none Drug Use: none Marital Status: Housing Status: group home Occupation Status: retired Current/Historical Medications Scheduled Alendronate Sodium (Fosamax), 70 MG PO WK Cholecalciferol (Vitamin D), 2,000 UNITS PO DAILY Cyanocobalamin (Vitamin B-12), 1,000 MCG PO DAILY Ferrous Sulfate (Kp Ferrous Sulfate), 325 MG PO BID Glimepiride (Glimepiride), 4 MG PO DAILY Insulin Glargine (Lantus), 25 UNITS SC HS Levothyroxine Sodium (Synthroid), 150 MCG PO QAM Losartan Potassium (Cozaar), 100 MG PO DAILY Magnesium Oxide (Mag-Ox), 400 MG PO BID Metformin Hcl (Glucophage), 850 MG PO BID Metoclopramide Hcl (Reglan), 2.5 MG PO BID Metoprolol Succinate (Toprol Xl), 25 MG PO BID Pantoprazole (Protonix), 40 MG PO DAILY Polyethylene Glycol 3350 (Bulk (Polyethylene Glycol 3350), 17 GM PO DAILY Sertraline (Zoloft), 100 MG PO DAILY Sertraline Hcl (Zoloft), 25 MG PO DAILY Spironolactone (Aldactone), 12.5 MG PO DAILY Warfarin Sod (Jantoven), 4 MG PO MWF Warfarin Sod (Jantoven), 5 MG PO 4XWK Scheduled PRN Acetaminophen (Tylenol), 650 MG MA Q4 PRN for Pain or Fever Acetaminophen Tab (Tylenol), 650 MG PO Q4 PRN for PAIN 1-5 OR FEVER Bisacodyl (Dulcolax), 1 SUPP MA DAILY PRN for Constipation Dextromethorphan-Guaifenesin (Robitussin-Dm Syrup), 10 ML PO Q6 PRN for Cough Magnesium Hydroxide (Milk Of Magnesia), 30 ML PO Q2D PRN for NO BM Sodium Phosphate/Biphosphate (Fleet Enema), 1 EA MA Q3D PRN for NO BM/NO RESULTS FROM MOM/SUPP Allergies Coded Allergies: Epinephrine (Verified Allergy, Mild, INCREASE HEART RATE, 04/03/16) Medroxyprogesterone (Verified Allergy, Unknown, ., 04/03/16) Physical Exam Vital Signs Date Time Temp Pulse Resp B/P (MAP) Pulse Ox O2 Delivery O2 Flow Rate FiO2 11/14/16 19:18 36.7 62 18 162/95 96 11/14/16 19:08 62 18 162/95 96 11/14/16 16:39 60 18 166/61 96 11/14/16 15:02 61 18 147/85 96 Room Air 11/14/16 13:29 36.7 62 18 147/80 94 Room Air Physical Exam GENERAL: Awake, alert, well-appearing, in no distress HENT: Normocephalic, atraumatic. Oropharynx unremarkable. Dry mucous membranes. EYES: Normal conjunctiva. Sclera non-icteric. NECK: Supple. No nuchal rigidity. FROM. No JVD. RESPIRATORY: Clear to auscultation. CARDIAC: Regular rate, normal rhythm. Extremities warm and well perfused. Pulses equal. ABDOMEN: Soft, non-distended. No tenderness to palpation. No rebound or guarding. No masses. RECTAL: Deferred. MUSCULOSKELETAL: Chest examination reveals no tenderness. Tenderness in right shoulder humerus area. LOWER EXTREMITIES: Tenderness of right ankle and foot with hematoma on dorsum of right foot, but otherwise foot is warm, good cap refill. NEURO: Confused but alert to self and place. No sensory or motor deficits noted. SKIN: No rash or jaundice noted. Medical Decision & Procedures ER Provider Diagnostic Interpretation: Radiology results as stated below per my review and radiologist interpretation: RIGHT SHOULDER MIN 2 VIEWS ROUTINE, RIGHT HUMERUS MIN 2 VIEWS ROUTINE CLINICAL HISTORY: Right shoulder and arm pain. COMPARISON STUDY: None. FINDINGS: Faint calcifications within the supraspinatus tendon consistent with calcific tendinitis. The right clavicle is intact. Mild osteoarthritis within the ventricular and glenohumeral joints. No acute fracture or dislocation within the right shoulder or right humerus. No radiopaque foreign bodies. IMPRESSION: No acute fracture or dislocation within the right shoulder or right humerus. Electronically signed by: Adrian Patricio M.D. 11/14/2016 3:03 PM Dictated Date/Time: 11/14/2016 3:01 PM RIGHT SHOULDER MIN 2 VIEWS ROUTINE, RIGHT HUMERUS MIN 2 VIEWS ROUTINE CLINICAL HISTORY: Right shoulder and arm pain. COMPARISON STUDY: None. FINDINGS: Faint calcifications within the supraspinatus tendon consistent with calcific tendinitis. The right clavicle is intact. Mild osteoarthritis within the ventricular and glenohumeral joints. No acute fracture or dislocation within the right shoulder or right humerus. No radiopaque foreign bodies. IMPRESSION: No acute fracture or dislocation within the right shoulder or right humerus. Electronically signed by: Adrian Patricio M.D. 11/14/2016 3:03 PM Dictated Date/Time: 11/14/2016 3:01 PM RIGHT ANKLE 3 VIEWS, RIGHT FOOT 3 VIEWS HISTORY: Right ankle and right foot PAIN/SWELLING Right COMPARISON: None. FINDINGS: The bones are osteopenic. Soft tissue swelling within the right ankle. Prior internal fixation of an old, healed bimalleolar ankle fracture. The hardware appears intact. No acute fracture or dislocation within the right ankle. Small plantar heel spur. The Lisfranc joint remains aligned. Soft tissue swelling within the forefoot. Nondisplaced fractures through the proximal shafts of the third through fifth metatarsals. IMPRESSION: 1. Nondisplaced fractures through the proximal shafts of the third through fifth metatarsals. The Lisfranc joint appears aligned. 2. No acute fracture or dislocation within the right ankle. Electronically signed by: Adrian Patricio M.D. 11/14/2016 3:07 PM Dictated Date/Time: 11/14/2016 3:03 PM RIGHT ANKLE 3 VIEWS, RIGHT FOOT 3 VIEWS HISTORY: Right ankle and right foot PAIN/SWELLING Right COMPARISON: None. FINDINGS: The bones are osteopenic. Soft tissue swelling within the right ankle. Prior internal fixation of an old, healed bimalleolar ankle fracture. The hardware appears intact. No acute fracture or dislocation within the right ankle. Small plantar heel spur. The Lisfranc joint remains aligned. Soft tissue swelling within the forefoot. Nondisplaced fractures through the proximal shafts of the third through fifth metatarsals. IMPRESSION: 1. Nondisplaced fractures through the proximal shafts of the third through fifth metatarsals. The Lisfranc joint appears aligned. 2. No acute fracture or dislocation within the right ankle. Electronically signed by: Adrian Patricio M.D. 11/14/2016 3:07 PM Dictated Date/Time: 11/14/2016 3:[address] SCAN OF THE BRAIN WITHOUT IV CONTRAST CLINICAL HISTORY: Change in mental status. Fall. COMPARISON STUDY: CT of the brain dated 05/18/2014. TECHNIQUE: Unenhanced axial CT scan of the brain is performed from the vertex to the skull base. CT DOSE: 638.56 mGycm FINDINGS: Brain parenchyma; There are age-related involutional changes noting mild subcortical and periventricular microangiopathic change. There is no hematoma, mass effect, or evidence of acute territorial ischemia by CT criteria. Sheppard- white mater is preserved. No extra-axial fluid collection is seen. Ventricles, sulci, cisterns: Prominent secondary to involutional change. Intracranial vasculature: There is atherosclerotic calcification of the cavernous carotid and vertebral arteries. Calvarium: Skeletal structures are osteopenic. There is no depressed femoral fracture. Sinuses and mastoids: The visualized paranasal sinuses are clear. The mastoid air cells are well pneumatized. Orbits: The bony orbits are grossly intact. There are bilateral ocular lens implant. IMPRESSION: There is no hemorrhage, mass effect, or evidence of acute territorial ischemia by CT criteria. Electronically signed by: Koby Dumont M.D. 11/14/2016 3:20 PM Dictated Date/Time: 11/14/2016 3:18 PM Laboratory Results 11/14/16 14:00 Red Blood Count 4.43, Mean Corpuscular Volume 93.0, Mean Corpuscular Hemoglobin 28.9, Mean Corpuscular Hemoglobin Concent 31.1, Mean Platelet Volume 10.2, Neutrophils (%) (Auto) 73.6, Lymphocytes (%) (Auto) 11.7, Monocytes (%) (Auto) 7.2, Eosinophils (%) (Auto) 7.0, Basophils (%) (Auto) 0.1, Neutrophils # (Auto) 7.08, Lymphocytes # (Auto) 1.12, Monocytes # (Auto) 0.69, Eosinophils # (Auto) 0.67, Basophils # (Auto) 0.01 11/14/16 14:00 Test 11/14/16 14:00 White Blood Count 9.61 K/uL (4.8-10.8) Red Blood Count 4.43 M/uL (4.2-5.4) Hemoglobin 12.8 g/dL (12.0-16.0) Hematocrit 41.2 % (37-47) Mean Corpuscular Volume 93.0 fL (80-100) Mean Corpuscular Hemoglobin 28.9 pg (25-34) Mean Corpuscular Hemoglobin Concent 31.1 g/dl (32-36) Platelet Count 172 K/uL (130-400) Mean Platelet Volume 10.2 fL (7.4-10.4) Neutrophils (%) (Auto) 73.6 % Lymphocytes (%) (Auto) 11.7 % Monocytes (%) (Auto) 7.2 % Eosinophils (%) (Auto) 7.0 % Basophils (%) (Auto) 0.1 % Neutrophils # (Auto) 7.08 K/uL (1.4-6.5) Lymphocytes # (Auto) 1.12 K/uL (1.2-3.4) Monocytes # (Auto) 0.69 K/uL (0.11-0.59) Eosinophils # (Auto) 0.67 K/uL (0-0.5) Basophils # (Auto) 0.01 K/uL (0-0.2) RDW Standard Deviation 48.7 fL (36.4-46.3) RDW Coefficient of Variation 14.3 % (11.5-14.5) Immature Granulocyte % (Auto) 0.4 % Immature Granulocyte # (Auto) 0.04 K/uL (0.00-0.02) Prothrombin Time 29.5 SECONDS (9.0-12.0) Prothromb Time International Ratio 2.6 (0.9-1.1) Anion Gap 5.0 mmol/L (3-11) Est Creatinine Clear Calc Drug Dose 56.0 ml/min Estimated GFR () 62.9 Estimated GFR (Non- 54.3 BUN/Creatinine Ratio 20.3 (10-20) Calcium Level 10.6 mg/dl (8.5-10.1) Laboratory results reviewed by ut ED Course 1334: The patient was evaluated in room B6. A limited history and physical exam was performed. 1820: I reevaluated the patient and she is resting. Discussed results and discharge instructions: the patient's family verbalized understanding and agreement. The patient is ready for discharge. Medical Decision I reviewed the patient's past medical history, medications, and the nursing notes as described above. Differential diagnoses: fracture vs soft tissue injury, possible intracranial hemorrhage. Patient is an 85-year-old woman with past medical history of A. fib on Coumadin who presents to emergency department after a fall at care home facility per history of present illness. Arrival the patient is alert to self and otherwise pleasantly demented. Complains of right shoulder pain and right foot pain where on exam she has overlying dorsal hematoma. INR 2.6n CT head negative. X-ray of right shoulder negative. X-ray of right foot showing several metatarsal fractures that are nondisplaced. Considering this patient is not weightbearing at baseline patient was given a postop shoe. Otherwise patient was discharged back to her facility with plan for follow-up. Head Trauma GCS Score: 14 Medication Reconcilliation Current Medication List: was personally reviewed by me Blood Pressure Screening Patient's blood pressure: Elevated blood pressure Blood pressure disposition: Elevated BP felt to be situational Impression Primary Impression: Metatarsal fracture Scribe Attestation The scribe's documentation has been prepared under my direction and personally reviewed by me in its entirety. I confirm that the note above accurately reflects all work, treatment, procedures, and medical decision making performed by me. Departure Information Dispostion Home / Self-Care Referrals Roque Lyn (PCP) Miguelito Bailon D.O. Patient Instructions ED Fx Foot, My [facility] Additional Instructions Please follow up with orthopedics for re-evaluation of your foot fractures. Otherwise, your exam, CT scan, xrays did not show signs of an emergent condition at this time. Wear postop shoe and remained nonweightbearing on that foot. Keep foot elevated. Continue to monitor your Coumadin levels. Return to the emergency department for worsening symptoms as described in the accompanying instructions.
[2016-11-14] MEDS ORDERED: WARF4TAB8 PO (14:03)
[2016-11-14] MEDS ORDERED: FERR1TAB13 PO (14:03)
[2016-11-14] MEDS ORDERED: INSDGI SC (14:03)
[2016-11-14] MEDS ORDERED: SYN150 PO (14:03)
[2016-11-14] MEDS ORDERED: WARF5TAB7 PO (14:03)
[2016-11-14] MEDS ORDERED: RBTDMUDL5 PO (14:03)
[2016-11-14] MEDS ORDERED: METO5SOL PO (14:03)
[2016-11-14 14:12] LABS: BASO % 0.1 %; BASO ABS # 0.01 K/uL (0-0.2); COMPLETE YES; HEMATOCRIT 41.2 % (37-47); IG% 0.4 %; LYMPH % 11.7 %; LYMPH ABS # 1.12 K/uL (1.2-3.4); MEAN CORPUSCULAR HEMOGLOBIN 28.9 pg (25-34); MEAN CORPUSCULAR HGB CONC 31.1 g/dl (32-36); MEAN PLATELET VOLUME 10.2 fL (7.4-10.4); MONO % 7.2 %; NEUT % 73.6 %; PLATELET COUNT 172 K/uL (130-400); RED BLOOD COUNT 4.43 M/uL (4.2-5.4); WHITE BLOOD COUNT 9.61 K/uL (4.8-10.8)
[2016-11-14 14:19] LABS: INR 2.6 (0.9-1.1); PROTHROMBIN TIME (PATIENT) 29.5 SECONDS (9.0-12.0)
[2016-11-14 14:32] LABS: BUN/CREATININE RATIO 20.3 (10-20); CALCIUM 10.6 mg/dl (8.5-10.1); CREATININE 0.96 mg/dl (0.60-1.20); POTASSIUM 4.5 mmol/L (3.5-5.1)
--- NOTE | 2016-11-14 15:04 | DIAGNOSTIC IMAGING REPORT ---
RIGHT SHOULDER MIN 2 VIEWS ROUTINE, RIGHT HUMERUS MIN 2 VIEWS ROUTINE CLINICAL HISTORY: Right shoulder and arm pain. COMPARISON STUDY: None. FINDINGS: Faint calcifications within the supraspinatus tendon consistent with calcific tendinitis. The right clavicle is intact. Mild osteoarthritis within the ventricular and glenohumeral joints. No acute fracture or dislocation within the right shoulder or right humerus. No radiopaque foreign bodies. IMPRESSION: No acute fracture or dislocation within the right shoulder or right humerus. Electronically signed by: Adrian Patricio M.D. 11/14/2016 3:03 PM Dictated Date/Time: 11/14/2016 3:01 PM
--- NOTE | 2016-11-14 15:08 | DIAGNOSTIC IMAGING REPORT ---
RIGHT ANKLE 3 VIEWS, RIGHT FOOT 3 VIEWS HISTORY: Right ankle and right foot PAIN/SWELLING Right COMPARISON: None. FINDINGS: The bones are osteopenic. Soft tissue swelling within the right ankle. Prior internal fixation of an old, healed bimalleolar ankle fracture. The hardware appears intact. No acute fracture or dislocation within the right ankle. Small plantar heel spur. The Lisfranc joint remains aligned. Soft tissue swelling within the forefoot. Nondisplaced fractures through the proximal shafts of the third through fifth metatarsals. IMPRESSION: 1. Nondisplaced fractures through the proximal shafts of the third through fifth metatarsals. The Lisfranc joint appears aligned. 2. No acute fracture or dislocation within the right ankle. Electronically signed by: Adrian Patricio M.D. 11/14/2016 3:07 PM Dictated Date/Time: 11/14/2016 3:03 PM
[2016-11-14 19:18] VITALS: BP 162/95; PULSE 62; TEMP 36.7; O2SAT 96
--- NOTE | 2016-11-15 08:18 | DIAGNOSTIC IMAGING REPORT ---
CT SCAN OF THE BRAIN WITHOUT IV CONTRAST CLINICAL HISTORY: Change in mental status. Fall. COMPARISON STUDY: CT of the brain dated 05/18/2014. TECHNIQUE: Unenhanced axial CT scan of the brain is performed from the vertex to the skull base. CT DOSE: 638.56 mGycm FINDINGS: Brain parenchyma: There are age-related involutional changes noting mild subcortical and periventricular microangiopathic change. There is no hemorrhage, mass effect, or evidence of acute territorial ischemia by CT criteria. Sheppard-white matter is preserved. No extra-axial fluid collection is seen. Ventricles, sulci, cisterns: Prominent secondary to involutional change. Intracranial vasculature: There is atherosclerotic calcification of the cavernous carotid and vertebral arteries. Calvarium: Skeletal structures are osteopenic. There is no depressed femoral fracture. Sinuses and mastoids: The visualized paranasal sinuses are clear. The mastoid air cells are well pneumatized. Orbits: The bony orbits are grossly intact. There are bilateral ocular lens implants. IMPRESSION: There is no hemorrhage, mass effect, or evidence of acute territorial ischemia by CT criteria. Electronically signed by: Koby Dumont M.D. 11/14/2016 3:20 PM Dictated Date/Time: 11/14/2016 3:18 PM
== END 2016-11-14 19:25 | disposition home or self-care (01) ==
LOC: EDBD 13:17 → C.EDB 13:19
DX: S92.334A Nondisplaced fracture of third metatarsal bone, right foot, initial encounter for closed fracture (principal); S92.344A Nondisplaced fracture of fourth metatarsal bone, right foot, initial encounter for closed fracture; S92.354A Nondisplaced fracture of fifth metatarsal bone, right foot, initial encounter for closed fracture; M25.511 Pain in right shoulder; W07.XXXA Fall from chair, initial encounter; J45.909 Unspecified asthma, uncomplicated; Y92.199 Unspecified place in other specified residential institution as the place of occurrence of the external cause; I48.91 Unspecified atrial fibrillation; F03.90 Unspecified dementia, unspecified severity, without behavioral disturbance, psychotic disturbance, mood disturbance, and anxiety; E11.9 Type 2 diabetes mellitus without complications; E03.9 Hypothyroidism, unspecified; E83.42 Hypomagnesemia; Z87.891 Personal history of nicotine dependence; Z79.4 Long term (current) use of insulin; Z79.01 Long term (current) use of anticoagulants; Z79.899 Other long term (current) drug therapy

== ENCOUNTER → 2016-11-19 | Outpatient (CLI) | payer OTHER, MEDICARE ==
[~2016-11-19] MED LIST changes: +FERR1TAB13 PO; -FERR325T51 PO; +INSDGI SC; -INSUINJ4 SQ; -LEVO1TAB PO; -METO10SO PO; +METO5SOL PO; +RBTDMUDL5 PO; +SYN150 PO; -WARF2TAB8 PO; +WARF4TAB8 PO
[2016-11-19 10:11] LABS: BASO % 0.4 %; BASO ABS # 0.03 K/uL (0-0.2); COMPLETE YES; EOS % 9.3 %; IG% 0.4 %; LYMPH % 21.1 %; LYMPH ABS # 1.61 K/uL (1.2-3.4); MEAN CELL VOLUME 93.9 fL (80-100); MEAN CORPUSCULAR HEMOGLOBIN 29.2 pg (25-34); MEAN CORPUSCULAR HGB CONC 31.1 g/dl (32-36); MEAN PLATELET VOLUME 10.9 fL (7.4-10.4); MONO % 9.4 %; NEUT % 59.4 %; PLATELET COUNT 185 K/uL (130-400); RED BLOOD COUNT 3.94 M/uL (4.2-5.4); WHITE BLOOD COUNT 7.62 K/uL (4.8-10.8)
[2016-11-19 10:36] LABS: ESTIMATED AVERAGE GLUCOSE 154 mg/dl; HA1C FLAG Normal (Normal)
[2016-11-19 10:39] LABS: BLOOD UREA NITROGEN 21 mg/dl (7-18); BUN/CREATININE RATIO 22.2 (10-20); CALCIUM 10.6 mg/dl (8.5-10.1); CARBON DIOXIDE 30 mmol/L (21-32); CHLORIDE 111 mmol/L (98-107); CREATININE 0.94 mg/dl (0.60-1.20); GLUCOSE 109 mg/dl (70-99); POTASSIUM 4.2 mmol/L (3.5-5.1); SODIUM 144 mmol/L (136-145)
== END ==
LOC: C.LABFOXAE 09:01
PROVIDERS: ATTEND Internal Medicine
DX: I10 Essential (primary) hypertension (principal); E11.9 Type 2 diabetes mellitus without complications

== ENCOUNTER → 2016-12-09 | Outpatient (CLI) | payer OTHER, MEDICARE ==
[2016-12-09 09:02] LABS: INR 2.1 (0.9-1.1)
== END | disposition home or self-care (01) ==
LOC: C.LABFOXAE 08:40
PROVIDERS: ATTEND Internal Medicine
DX: I48.0 Paroxysmal atrial fibrillation (principal)

== ENCOUNTER → 2016-12-10 | Outpatient (CLI) | payer OTHER, MEDICARE ==
--- NOTE | 2016-12-10 13:02 | DIAGNOSTIC IMAGING REPORT ---
RIGHT LOWER EXTREMITY WITHOUT CLINICAL HISTORY: 86 years-old Female presenting with RT FOOT PAIN,M79.671 Right. TECHNIQUE: Multidetector CT of the right foot was performed without the use of intravenous contrast. IV contrast: None. A dose lowering technique was used consistent with the principles of ALARA (as low as reasonably achievable). COMPARISON: Plain radiographs of the right foot from 11/14/2016. CT DOSE (mGy.cm): The estimated cumulative dose is 269.90 mGy.cm. FINDINGS: Nurse Discharge topogram: Internal fixation hardware. Cortical compression plate and screw fixation of the distal fibular metadiaphysis. Additional sagittally oriented screw in the distal metaphysis of the fibula. 2 lag screw fixation of the medial malleolus. Hardware results in regional beam hardening artifact. Allowing for this, no evidence of hardware complication. Fractures of the first through fifth metatarsals at the base and proximal diaphyses. Notably, fracture of the base of the second metatarsal involves the Lisfranc joint with an associated fracture fragment arising from the distal lateral aspect of the medial cuneiform, consistent with Lisfranc fracture. There is no dislocation currently evident. Periosteal reaction noted at the first metatarsal fracture consistent with interval healing. Suggestion of several screw tracks through the bones of the midfoot. Mild diffuse subcutaneous edema noted. Muscle atrophy diffusely. IMPRESSION: Findings consistent with Lisfranc fracture with fractures of the first through fifth metatarsal bases/proximal metaphyses and fracture of the distal lateral aspect of the medial cuneiform. No malalignment at this time. Electronically signed by: Shayan Mckeon M.D. 12/10/2016 1:00 PM Dictated Date/Time: 12/10/2016 12:55 PM
== END | disposition home or self-care (01) ==
LOC: C.CTS 12:25
PROVIDERS: ATTEND Orthopaedic Surgery Sports Medicine
DX: M79.671 Pain in right foot (principal)

== ENCOUNTER → 2016-12-17 | Outpatient (CLI) | payer OTHER, MEDICARE ==
[2016-12-17 08:36] LABS: BLOOD UREA NITROGEN 31 mg/dl (7-18); BUN/CREATININE RATIO 28.5 (10-20); CALCIUM 11.3 mg/dl (8.5-10.1); CARBON DIOXIDE 27 mmol/L (21-32); CHLORIDE 109 mmol/L (98-107); GLUCOSE 127 mg/dl (70-99); POTASSIUM 4.3 mmol/L (3.5-5.1); SODIUM 143 mmol/L (136-145)
== END | disposition home or self-care (01) ==
LOC: C.LABFOXAE 08:13
PROVIDERS: ATTEND Internal Medicine
DX: I10 Essential (primary) hypertension (principal); E03.9 Hypothyroidism, unspecified; R03.0 Elevated blood-pressure reading, without diagnosis of hypertension

== ENCOUNTER → 2016-12-18 | Outpatient (CLI) | payer OTHER, MEDICARE | LOC: C.LABFOXAE 08:21 | PROVIDERS: ATTEND Internal Medicine | DX: E87.5 Hyperkalemia (principal); I10 Essential (primary) hypertension; E03.9 Hypothyroidism, unspecified; E83.52 Hypercalcemia ==

== ENCOUNTER → 2016-12-23 | Outpatient (CLI) | payer OTHER, MEDICARE | END | disposition home or self-care (01) | LOC: C.LABFOXAE 08:36 | PROVIDERS: ATTEND Internal Medicine | DX: E83.52 Hypercalcemia (principal) ==

== ENCOUNTER → 2017-01-06 | Outpatient (CLI) | payer OTHER, MEDICARE ==
[2017-01-06 08:23] LABS: INR 1.9 (0.9-1.1); PROTHROMBIN TIME (PATIENT) 21.4 SECONDS (9.0-12.0)
== END | disposition home or self-care (01) ==
LOC: C.LABFOXAE 07:43
PROVIDERS: ATTEND Internal Medicine
DX: I48.0 Paroxysmal atrial fibrillation (principal)

== ENCOUNTER → 2017-01-08 | Outpatient (CLI) | payer OTHER, MEDICARE ==
[2017-01-08 08:21] LABS: URINE APPEARANCE CLEAR (CLEAR); URINE BILIRUBIN NEG (NEG); URINE COLOR YELLOW; URINE EPITHELIAL CELL AUTO 20-30 /lpf (0-5); URINE NITRITE POS (NEG); UROBILINOGEN NEG (NEG)
[2017-01-08 08:22] LABS: MANUAL MICROSCOPIC REQUIRED? NO; REVIEW REQ? NO
== END ==
LOC: C.LABFOXAE 07:41
PROVIDERS: ATTEND Internal Medicine
DX: R35.0 Frequency of micturition (principal)

== ENCOUNTER → 2017-01-10 | Outpatient (CLI) | payer OTHER, MEDICARE ==
[~2017-01-10] MED LIST changes: +METO-478 PO; -METO1TAB31 PO
--- NOTE | 2017-01-16 13:08 | CODING QUERY MEDICAL NECESSITY ---
SUPPORTING DIAGNOSIS NEEDED Dr. Dukes, A supporting diagnosis is required for the test/procedure performed on this patient in order for us to be reimbursed by the patient's insurance. Please provide a supporting diagnosis for the following test/procedure listed below next to the test name along with your signature. *If there is no additional diagnosis for this patient that would support the following test/procedure please document that below next to the test/procedure. Test(s)/Procedure(s) that require a supporting diagnosis: * ([id number]) VITAMIN D ASSAY DIAGNOSIS: DATE OF SERVICE: 01/10/17 Provider Signature: Date: Thank you Arturo Odonnell [facility] Information Management Once completed, please kindly fax back to [phone] For questions please call [phone]
== END | disposition home or self-care (01) ==
LOC: C.LABFOXAE 07:53
PROVIDERS: ATTEND Internal Medicine
DX: E87.5 Hyperkalemia (principal); N18.3 Chronic kidney disease, stage 3 (moderate); M81.0 Age-related osteoporosis without current pathological fracture

== ENCOUNTER → 2017-01-14 | Outpatient (CLI) | payer OTHER, MEDICARE ==
[~2017-01-14] MED LIST changes: -METO-478 PO; +METO1TAB31 PO
[2017-01-14 10:43] LABS: CALCIUM 10.8 mg/dl (8.5-10.1)
== END ==
LOC: C.LABFOXAE 09:45
PROVIDERS: ATTEND Physician Assistant
DX: E21.3 Hyperparathyroidism, unspecified (principal)

== ENCOUNTER → 2017-02-04 | Outpatient (CLI) | payer OTHER, MEDICARE ==
[~2017-02-04] MED LIST changes: +CEPH500C PO; +HYDR-5688 PO; +METO-478 PO; -METO1TAB31 PO
[2017-02-04 09:54] LABS: INR 2.5 (0.9-1.1); PROTHROMBIN TIME (PATIENT) 28.3 SECONDS (9.0-12.0)
== END ==
LOC: C.LABFOXAE 08:42
PROVIDERS: ATTEND Internal Medicine
DX: I48.2 Chronic atrial fibrillation (principal)

== ENCOUNTER 2017-02-08 16:40 | Emergency (ER) | payer OTHER, MEDICARE ==
[~2017-02-08] VITALS: Ht 172.7 cm; Wt 105.0 kg
[~2017-02-08 16:40] MED LIST changes: -CEPH500C PO; -HYDR-5688 PO
[2017-02-08 16:54] VITALS: TEMP 36.6; Ht 172.7 cm; Wt 105.0 kg
[2017-02-08 17:42] LABS: BASO % 0.2 %; BASO ABS # 0.02 K/uL (0-0.2); COMPLETE YES; EOS % 3.7 %; HEMATOCRIT 42.1 % (37-47); IG% 0.5 %; LYMPH % 8.9 %; LYMPH ABS # 1.15 K/uL (1.2-3.4); MEAN CELL VOLUME 93.1 fL (80-100); MEAN CORPUSCULAR HEMOGLOBIN 29.6 pg (25-34); MEAN CORPUSCULAR HGB CONC 31.8 g/dl (32-36); MEAN PLATELET VOLUME 10.7 fL (7.4-10.4); MONO % 6.5 %; NEUT % 80.2 %; PLATELET COUNT 182 K/uL (130-400); RED BLOOD COUNT 4.52 M/uL (4.2-5.4); WHITE BLOOD COUNT 12.85 K/uL (4.8-10.8)
[2017-02-08 17:43] LABS: MANUAL MICROSCOPIC REQUIRED? NO; REVIEW REQ? NO; URINE APPEARANCE CLOUDY (CLEAR); URINE BILIRUBIN NEG (NEG); URINE COLOR YELLOW; URINE EPITHELIAL CELL AUTO 0-5 /lpf (0-5); URINE NITRITE POS (NEG); URINE PH 7.5 (4.5-7.5); UROBILINOGEN NEG (NEG); ZZURINE CULT IF INDIC CATH YES
[2017-02-08 17:50] LABS: PARTIAL THROMBOPLASTIN RATIO 1.1; PROTHROMBIN TIME (PATIENT) 22.1 SECONDS (9.0-12.0)
[2017-02-08 17:58] LABS: BUN/CREATININE RATIO 20.4 (10-20); CREATININE 1.24 mg/dl (0.60-1.20)
[2017-02-08] MEDS ORDERED: FENTANYL CITRATE INJ 50 MCG/1 ML 2 ML VIAL IV STA (17:58)
--- NOTE | 2017-02-08 17:58 | DIAGNOSTIC IMAGING REPORT ---
CT HEAD WITHOUT CONTRAST (CT) CLINICAL HISTORY: Head pain status post trauma COMPARISON STUDY: No previous studies for comparison. TECHNIQUE: Axial CT of the brain is performed from the vertex to the skull base. IV contrast was not administered for this examination. A dose lowering technique was utilized adhering to the principles of ALARA. CT DOSE: FINDINGS: No intra or extra-axial mass lesions are visualized. There is no CT evidence of acute cortical infarction. There is no evidence of midline shift. There is no acute hemorrhage. No calvarial fractures are visualized. There are patchy white matter hypodensities likely on a small vessel basis. There is no evidence of pathologic ventricular dilatation. There is no evidence of acute sinusitis. There is a stable 14 mm lytic focus within the right frontal calvarium (x4 years). IMPRESSION: No acute intracranial findings Electronically signed by: Benjamin Vann M.D. 02/08/2017 5:56 PM Dictated Date/Time: 02/08/2017 5:53 PM
--- NOTE | 2017-02-08 18:00 | DIAGNOSTIC IMAGING REPORT ---
CT OF THE CERVICAL SPINE CLINICAL HISTORY: Neck pain status post trauma COMPARISON STUDY: April 2014 CT DOSE: TECHNIQUE: CT scan of the cervical spine was performed from the skull base to the thoracic inlet. Images are reviewed in the axial, sagittal, and coronal planes. IV contrast was not administered for this examination. A dose lowering technique was utilized adhering to the principles of ALARA. FINDINGS: The visualized portions of the lung apices reveal no evidence of pneumothorax. The prevertebral soft tissues are normal. No fractures or subluxations are visualized. There are multilevel degenerative changes IMPRESSION: No evidence of acute fracture or traumatic subluxation. Electronically signed by: Benjamin Vann M.D. 02/08/2017 5:59 PM Dictated Date/Time: 02/08/2017 5:57 PM
--- NOTE | 2017-02-08 18:05 | DIAGNOSTIC IMAGING REPORT ---
CT LUMBAR SPINE WITHOUT CT DOSE: 4011.98 mGy.cm CLINICAL HISTORY: Back pain status post trauma TECHNIQUE: Helical images were acquired in transverse plane. Reformatted sagittal and coronal images were reviewed. A dose lowering technique was utilized adhering to the principles of ALARA. CONTRAST: No contrast was administered COMPARISON STUDY: April 2014 FINDINGS: L1-2 level: There is a circumferential disc bulge. There is mild to moderate spinal stenosis. L2-3 level: There is a circumferential disc bulge. There is moderate spinal stenosis L3-4 level: There is a circumferential disc bulge. There is severe spinal stenosis L4-5 level: There is a circumferential disc bulge. There is moderate spinal stenosis L5-S1 level: There is a mild circumferential disc bulge. There is no significant spinal or foraminal stenosis. There is right-sided nephrolithiasis. There is a 26 mm right adrenal gland nodule There is indwelling IVC filter. Multiple struts are extra luminal. There are no acute fractures or traumatic subluxations IMPRESSION: 1. No acute fractures or traumatic subluxations 2. Multilevel spondylitic change with multilevel spinal stenosis 3. Right-sided nephrolithiasis 4. Stable 26 mm right adrenal gland nodule Electronically signed by: Benjamin Vann M.D. 02/08/2017 6:03 PM Dictated Date/Time: 02/08/2017 5:59 PM
--- NOTE | 2017-02-08 18:13 | DIAGNOSTIC IMAGING REPORT ---
CT THORACIC SPINE WITHOUT CT DOSE: CLINICAL HISTORY: Thoracic spine pain status post trauma TECHNIQUE: Helical images were acquired in the transverse plane. Sagittal and coronal reformatted images were acquired. A dose lowering technique was utilized adhering to the principles of ALARA. COMPARISON STUDY: April 2014 FINDINGS: There are multilevel degenerative changes. No acute fractures or traumatic subluxations are visualized. There are no findings to indicate a paraspinal hematoma. There is 26 mm right adrenal gland nodule which remains unchanged. There is a 24 mm right upper lobe pulmonary nodule. This nodule measured 19 mm in November 2014 There are a few additional scattered tiny pulmonary nodules not exceeding 2.5 mm in size. Also evident is a 1 cm groundglass nodule within the left upper lobe abutting the fissure. IMPRESSION: 1. Multilevel degenerative change. No acute fractures or traumatic subluxations are visualized 2. Slowly enlarging indeterminate irregular marginated solid 24 mm right upper lobe pulmonary nodule. This nodule has a two-year doubling time. 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 3. Stable 26 mm right adrenal gland nodule Electronically signed by: Benjamin Vann M.D. 02/08/2017 6:11 PM Dictated Date/Time: 02/08/2017 6:04 PM
--- NOTE | 2017-02-08 18:16 | DIAGNOSTIC IMAGING REPORT ---
PELVIS 1 OR 2 VIEW ROUTINE CLINICAL HISTORY: Left hip pain status post trauma COMPARISON STUDY: 08/28/2012 FINDINGS: Postsurgical changes involve the right hip. The bones are osteopenic. No fracture the left proximal femur are visualized. There is acute fracture the left symphysis pubis/medial left ischiopubic ring. There is no SI joint diastases. There is no symphysis diastases. IMPRESSION: Acute fracture the left symphysis pubis /medial left ischiopubic ring Electronically signed by: Benjamin Vann M.D. 02/08/2017 6:15 PM Dictated Date/Time: 02/08/2017 6:13 PM
--- NOTE | 2017-02-08 18:19 | DIAGNOSTIC IMAGING REPORT ---
CHEST ONE VIEW PORTABLE CLINICAL HISTORY: Trauma. Hip pain. COMPARISON STUDY: 04/03/2016 FINDINGS: The heart is normal in size. No pneumothorax is visualized in the supine study. There is a 24 mm right upper lobe pulmonary nodule.[ No pleural effusions are visualized. There is no focal pulmonary consolidation. There is calcified granuloma the left lung base. There is an equivocal left upper lobe nodule. IMPRESSION: 1. Enlarging right upper lobe pulmonary nodule measuring 24 mm. 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 2. 12 mm left upper lobe pulmonary nodule versus summation. Electronically signed by: Benjamin Vann M.D. 02/08/2017 6:18 PM Dictated Date/Time: 02/08/2017 6:15 PM
--- NOTE | 2017-02-08 18:33 | DIAGNOSTIC IMAGING REPORT ---
L FEMUR 7 VIEWS ROUTINE CLINICAL HISTORY: Left femur pain status post trauma COMPARISON: None. DISCUSSION: The bones are osteopenic. There are degenerative changes present within the knee. There is suspected chondrocalcinosis. Crosstable lateral views of the left hip are suboptimal. There is a subtle fracture the left symphysis pubis/medial ischio pubic ring. IMPRESSION: 1. No evidence of left femoral fracture 2. Subtle fracture of the left symphysis pubis/medial left ischiopubic ring Electronically signed by: Benjamin Vann M.D. 02/08/2017 6:32 PM Dictated Date/Time: 02/08/2017 6:31 PM
--- NOTE | 2017-02-08 18:37 | EMERGENCY ROOM VISIT NOTE ---
History First contact with patient: 16:43 Chief Complaint: FALL Stated Complaint: FALL L HIP PAIN History of Present Illness The patient is a 86 year old female who presents to the Emergency Room via ambulance with complaints of "fall, left hip pain". The patient states that she believes she fell and injured her left hip. History is limited, but after discussing the patient case with the EMS as well as the nurse who called [facility] where the patient resides it was evident the patient was to be partial weightbearing status of the right leg secondary to previous fracture, was out of bed ambulating and found at the bedside and believe she had fallen. She at this time notes pain in the left hip. She denies any chest pain or shortness of breath. Review of Systems A complete 10-point Review of Systems was discussed with the patient, with pertinent positives and negatives listed in the History of Present Illness. All remaining Review of Systems questions can be considered negative unless otherwise specified. Past Medical/Surgical History Medical Problems: (1) Asthmatic bronchitis with acute exacerbation (2) Atrial fibrillation (3) Atrial tachycardia (4) Atrial tachycardia (5) Bronchitis (6) Contusion of multiple sites (7) Dementia (8) Diabetes mellitus type 2 (9) Fall (10) Femur fracture, right (11) Hypomagnesemia (12) Hypothyroidism (13) Hypoxemia (14) Palpitations Family History Patient reports no known family medical history. Social History Smoking Status: Never Smoker Alcohol Use: none Drug Use: none Marital Status: Housing Status: retirement Occupation Status: retired Current/Historical Medications Scheduled Alendronate Sodium (Fosamax), 70 MG PO WK Cephalexin Monohydrate (Keflex), 500 MG PO BID Cholecalciferol (Vitamin D), 2,000 UNITS PO DAILY Cyanocobalamin (Vitamin B-12), 1,000 MCG PO DAILY Ferrous Sulfate (Kp Ferrous Sulfate), 325 MG PO BID Glimepiride (Glimepiride), 4 MG PO DAILY Insulin Glargine (Lantus), 25 UNITS SC HS Levothyroxine Sodium (Synthroid), 150 MCG PO QAM Losartan Potassium (Cozaar), 100 MG PO DAILY Magnesium Oxide (Mag-Ox), 400 MG PO BID Metformin Hcl (Glucophage), 850 MG PO BID Metoclopramide Hcl (Reglan), 2.5 MG PO BID Metoprolol Succinate (Toprol Xl), 25 MG PO BID Pantoprazole (Protonix), 40 MG PO DAILY Polyethylene Glycol 3350 (Bulk (Polyethylene Glycol 3350), 17 GM PO DAILY Sertraline (Zoloft), 100 MG PO DAILY Sertraline Hcl (Zoloft), 25 MG PO DAILY Spironolactone (Aldactone), 12.5 MG PO DAILY Warfarin Sod (Jantoven), 4 MG PO MWF Warfarin Sod (Jantoven), 5 MG PO 4XWK Scheduled PRN Acetaminophen (Tylenol), 650 MG IL Q4 PRN for Pain or Fever Acetaminophen Tab (Tylenol), 650 MG PO Q4 PRN for PAIN 1-5 OR FEVER Bisacodyl (Dulcolax), 1 SUPP IL DAILY PRN for Constipation Hydrocodone/Acetaminophen 5MG/325MG ([place] 5MG/325MG), 1-2 TABLET PO Q6 PRN for Pain Magnesium Hydroxide (Milk Of Magnesia), 30 ML PO Q2D PRN for NO BM Sodium Phosphate/Biphosphate (Fleet Enema), 1 EA IL Q3D PRN for NO BM/NO RESULTS FROM MOM/SUPP Physical Exam Vital Signs Date Time Temp Pulse Resp B/P (MAP) Pulse Ox O2 Delivery O2 Flow Rate FiO2 02/08/17 20:59 20 158/88 96 02/08/17 19:41 66 18 186/67 96 Room Air 02/08/17 18:47 64 20 146/103 91 Room Air 02/08/17 17:28 62 02/08/17 16:54 36.6 97 18 154/84 96 Room Air Physical Exam VITAL SIGNS - Vital signs and nursing notes were reviewed. Stable. Hypertensive. GENERAL -86-year-old female appearing her stated age who is in no acute distress. Communicates well with provider and answers questions appropriately. SKIN - Without rashes. No petechial rashes. HEAD - NC/AT. EYES - PERRL with EOMI bilaterally. Sclera anicteric. No hyphema. EARS - No deformities of external structures noted on gross examination bilaterally. No blood from the external canals. NOSE - Midline and without cyanosis. No epistaxis or purulent drainage noted. MOUTH/OROPHARYNX - Without perioral cyanosis. No blood in the oropharynx. NECK - Neck with FROM. There is minimal inferior C-spine tenderness as well as thoracic and lumbar spinous processes tenderness. LUNGS - Chest wall symmetric without accessory muscle use, intercostals retractions, or central cyanosis. Normal vesicular breath sounds CTA B/L. No wheezes, rales, or rhonchi appreciated. CARDIAC - RRR with S1/S2. No murmur, rubs, or gallops appreciated. ABDOMEN - Abdominal contour normal without pulsations or visible masses. BS normoactive all four quadrants. There is left inferior quadrant tenderness overlying the patient's left hip region. Otherwise no abdominal tenderness. No palpable masses, hepatosplenomegaly, or ascites noted. EXTREMITIES - No clubbing or peripheral cyanosis. No pretibial edema present. Tenderness overlying the patient's left hip. Extremities otherwise unremarkable to palpation. +5/5 strength noted in UE/LE bilaterally. NEUROLOGIC - Cranial nerves II through XII grossly intact. Sensory intact to light touch throughout. PSYCH - A&Ox3 and cooperates fully with examiner. Pt is very pleasant and interacts well with examiner. Medical Decision & Procedures ER Provider Diagnostic Interpretation: CT HEAD WITHOUT CONTRAST (CT) CLINICAL HISTORY: Head pain status post trauma COMPARISON STUDY: No previous studies for comparison. TECHNIQUE: Axial CT of the brain is performed from the vertex to the skull base. IV contrast was not administered for this examination. A dose lowering technique was utilized adhering to the principles of ALARA. CT DOSE: FINDINGS: No intra or extra-axial mass lesions are visualized. There is no CT evidence of acute cortical infarction. There is no evidence of midline shift. There is no acute hemorrhage. No calvarial fractures are visualized. There are patchy white matter hypodensities likely on a small vessel basis. There is no evidence of pathologic ventricular dilatation. There is no evidence of acute sinusitis. There is a stable 14 mm lytic focus within the right frontal calvarium (x4 years). IMPRESSION: No acute intracranial findings Electronically signed by: Benjamin Vann M.D. 02/08/2017 5:56 PM Dictated Date/Time: 02/08/2017 5:53 PM CHEST ONE VIEW PORTABLE CLINICAL HISTORY: Trauma. Hip pain. COMPARISON STUDY: 04/03/2016 FINDINGS: The heart is normal in size. No pneumothorax is visualized in the supine study. There is a 24 mm right upper lobe pulmonary nodule.[ No pleural effusions are visualized. There is no focal pulmonary consolidation. There is calcified granuloma the left lung base. There is an equivocal left upper lobe nodule. IMPRESSION: 1. Enlarging right upper lobe pulmonary nodule measuring 24 mm. 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 2. 12 mm left upper lobe pulmonary nodule versus summation. Electronically signed by: Benjamin Vann M.D. 02/08/2017 6:18 PM Dictated Date/Time: 02/08/2017 6:[address] OF THE CERVICAL SPINE CLINICAL HISTORY: Neck pain status post trauma COMPARISON STUDY: April 2014 CT DOSE: TECHNIQUE: CT scan of the cervical spine was performed from the skull base to the thoracic inlet. Images are reviewed in the axial, sagittal, and coronal planes. IV contrast was not administered for this examination. A dose lowering technique was utilized adhering to the principles of ALARA. FINDINGS: The visualized portions of the lung apices reveal no evidence of pneumothorax. The prevertebral soft tissues are normal. No fractures or subluxations are visualized. There are multilevel degenerative changes IMPRESSION: No evidence of acute fracture or traumatic subluxation. Electronically signed by: Benjamin Vann M.D. 02/08/2017 5:59 PM Dictated Date/Time: 02/08/2017 5:[address] THORACIC SPINE WITHOUT CT DOSE: CLINICAL HISTORY: Thoracic spine pain status post trauma TECHNIQUE: Helical images were acquired in the transverse plane. Sagittal and coronal reformatted images were acquired. A dose lowering technique was utilized adhering to the principles of ALARA. COMPARISON STUDY: April 2014 FINDINGS: There are multilevel degenerative changes. No acute fractures or traumatic subluxations are visualized. There are no findings to indicate a paraspinal hematoma. There is 26 mm right adrenal gland nodule which remains unchanged. There is a 24 mm right upper lobe pulmonary nodule. This nodule measured 19 mm in November 2014 There are a few additional scattered tiny pulmonary nodules not exceeding 2.5 mm in size. Also evident is a 1 cm groundglass nodule within the left upper lobe abutting the fissure. IMPRESSION: 1. Multilevel degenerative change. No acute fractures or traumatic subluxations are visualized 2. Slowly enlarging indeterminate irregular marginated solid 24 mm right upper lobe pulmonary nodule. This nodule has a two-year doubling time. 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 3. Stable 26 mm right adrenal gland nodule Electronically signed by: Benjamin Vann M.D. 02/08/2017 6:11 PM Dictated Date/Time: 02/08/2017 6:[address] LUMBAR SPINE WITHOUT CT DOSE: 4011.98 mGy.cm CLINICAL HISTORY: Back pain status post trauma TECHNIQUE: Helical images were acquired in transverse plane. Reformatted sagittal and coronal images were reviewed. A dose lowering technique was utilized adhering to the principles of ALARA. CONTRAST: No contrast was administered COMPARISON STUDY: April 2014 FINDINGS: L1-2 level: There is a circumferential disc bulge. There is mild to moderate spinal stenosis. L2-3 level: There is a circumferential disc bulge. There is moderate spinal stenosis L3-4 level: There is a circumferential disc bulge. There is severe spinal stenosis L4-5 level: There is a circumferential disc bulge. There is moderate spinal stenosis L5-S1 level: There is a mild circumferential disc bulge. There is no significant spinal or foraminal stenosis. There is right-sided nephrolithiasis. There is a 26 mm right adrenal gland nodule There is indwelling IVC filter. Multiple struts are extra luminal. There are no acute fractures or traumatic subluxations IMPRESSION: 1. No acute fractures or traumatic subluxations 2. Multilevel spondylitic change with multilevel spinal stenosis 3. Right-sided nephrolithiasis 4. Stable 26 mm right adrenal gland nodule Electronically signed by: Benjamin Vann M.D. 02/08/2017 6:03 PM Dictated Date/Time: 02/08/2017 5:59 PM PELVIS 1 OR 2 VIEW ROUTINE CLINICAL HISTORY: Left hip pain status post trauma COMPARISON STUDY: 08/28/2012 FINDINGS: Postsurgical changes involve the right hip. The bones are osteopenic. No fracture the left proximal femur are visualized. There is acute fracture the left symphysis pubis/medial left ischiopubic ring. There is no SI joint diastases. There is no symphysis diastases. IMPRESSION: Acute fracture the left symphysis pubis /medial left ischiopubic ring Electronically signed by: Benjamin Vann M.D. 02/08/2017 6:15 PM Dictated Date/Time: 02/08/2017 6:13 PM L FEMUR 7 VIEWS ROUTINE CLINICAL HISTORY: Left femur pain status post trauma COMPARISON: None. DISCUSSION: The bones are osteopenic. There are degenerative changes present within the knee. There is suspected chondrocalcinosis. Crosstable lateral views of the left hip are suboptimal. There is a subtle fracture the left symphysis pubis/medial ischio pubic ring. IMPRESSION: 1. No evidence of left femoral fracture 2. Subtle fracture of the left symphysis pubis/medial left ischiopubic ring Electronically signed by: Benjamin Vann M.D. 02/08/2017 6:32 PM Dictated Date/Time: 02/08/2017 6:31 PM Laboratory Results 02/08/17 17:20 Red Blood Count 4.52, Mean Corpuscular Volume 93.1, Mean Corpuscular Hemoglobin 29.6, Mean Corpuscular Hemoglobin Concent 31.8, Mean Platelet Volume 10.7, Neutrophils (%) (Auto) 80.2, Lymphocytes (%) (Auto) 8.9, Monocytes (%) (Auto) 6.5, Eosinophils (%) (Auto) 3.7, Basophils (%) (Auto) 0.2, Neutrophils # (Auto) 10.30, Lymphocytes # (Auto) 1.15, Monocytes # (Auto) 0.83, Eosinophils # (Auto) 0.48, Basophils # (Auto) 0.02 02/08/17 17:20 Test 02/08/17 17:20 White Blood Count 12.85 K/uL (4.8-10.8) Red Blood Count 4.52 M/uL (4.2-5.4) Hemoglobin 13.4 g/dL (12.0-16.0) Hematocrit 42.1 % (37-47) Mean Corpuscular Volume 93.1 fL (80-100) Mean Corpuscular Hemoglobin 29.6 pg (25-34) Mean Corpuscular Hemoglobin Concent 31.8 g/dl (32-36) Platelet Count 182 K/uL (130-400) Mean Platelet Volume 10.7 fL (7.4-10.4) Neutrophils (%) (Auto) 80.2 % Lymphocytes (%) (Auto) 8.9 % Monocytes (%) (Auto) 6.5 % Eosinophils (%) (Auto) 3.7 % Basophils (%) (Auto) 0.2 % Neutrophils # (Auto) 10.30 K/uL (1.4-6.5) Lymphocytes # (Auto) 1.15 K/uL (1.2-3.4) Monocytes # (Auto) 0.83 K/uL (0.11-0.59) Eosinophils # (Auto) 0.48 K/uL (0-0.5) Basophils # (Auto) 0.02 K/uL (0-0.2) RDW Standard Deviation 48.3 fL (36.4-46.3) RDW Coefficient of Variation 14.2 % (11.5-14.5) Immature Granulocyte % (Auto) 0.5 % Immature Granulocyte # (Auto) 0.07 K/uL (0.00-0.02) Prothrombin Time 22.1 SECONDS (9.0-12.0) Prothromb Time International Ratio 2.0 (0.9-1.1) Activated Partial Thromboplast Time 28.5 SECONDS (21.0-31.0) Partial Thromboplastin Ratio 1.1 Urine Color YELLOW Urine Appearance CLOUDY (CLEAR) Urine pH 7.5 (4.5-7.5) Urine Specific [place] 1.020 (1.000-1.030) Urine Protein NEG (NEG) Urine Glucose (UA) NEG (NEG) Urine Ketones NEG (NEG) Urine Occult Blood NEG (NEG) Urine Nitrite POS (NEG) Urine Bilirubin NEG (NEG) Urine Urobilinogen NEG (NEG) Urine Leukocyte Esterase MODERATE (NEG) Urine WBC (Auto) >30 /hpf (0-5) Urine RBC (Auto) 0-4 /hpf (0-4) Urine Hyaline Casts (Auto) 1-5 /lpf (0-5) Urine Epithelial Cells (Auto) 0-5 /lpf (0-5) Urine Bacteria (Auto) 4+ (NEG) Anion Gap 6.0 mmol/L (3-11) Est Creatinine Clear Calc Drug Dose 42.1 ml/min Estimated GFR () 45.9 Estimated GFR (Non- 39.6 BUN/Creatinine Ratio 20.4 (10-20) Calcium Level 11.0 mg/dl (8.5-10.1) Medications Administered Medications (Trade) Dose Ordered Sig/Angel Route Start Time Stop Time Status Last Admin Dose Admin Fentanyl Citrate (Fentanyl Inj) 50 mcg NOW STAT IV 02/08/17 17:58 02/08/17 18:00 DC 02/08/17 18:44 50 MCG Ceftriaxone Sodium (Rocephin Inj) 1 gm NOW STAT IV 02/08/17 18:39 02/08/17 18:41 DC 02/08/17 18:47 1 GM Medical Decision Patient was seen and evaluated as above. She presents to us today status post fall on the left hip. She is well on exam of the left hip pain. She is able to state where she is at, her date and converses well. Bedside EKG reveals normal sinus rhythm, left axis deviation. Rate of 60 bpm. This was compared to EKG of April 04 of this year and reveals nonspecific T wave abnormality has since replaced the T waves were inverted in the anterior leads. I do not suspect MS or PE as the cause of her fall. I suspect mechanical fall as she was partial weightbearing on the right leg secondary to a fracture in the right lower extremity. She is tender on exam from the inferior C-spine through the thoracic and lumbar spine. There is also left hip tenderness. CT and x-rays were obtained. 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 Patient was not aware of this but her [id number] who was in the room was also made aware as well as [facility] nurse underground supervisor Ashleigh. She also appears to have a small fracture in the left side of the pelvis. This appears to be nonoperative and the case was discussed with the attending physician. She was given fentanyl for pain as this is a quick short acting medication and I do not think will cause too much sedation or change in mental status. CBC revealed slight leukocytosis of 12.85. No anemia. Patient INR 2.0. Patient's metabolic panel reveals BUN/creatinine elevated at 1.25 and 25. Calcium high at 11. Patient baseline creatinine is 1.10. She does appear to be dehydrated. Imaging reveals an acute fracture as noted above otherwise chronic change. Urine reveals positive nitrites which I believe is secondary to a UTI. She is afebrile. I do not suspect sepsis. She will be given a gram or Rocephin here and will be sent home on Keflex. I recommend [place] for pain that can't [place]. Benefits versus risk of inpatient management versus back at [facility] was discussed with the patient's [id number] here, the attending physician and it was felt that she could return there as staying in the hospital certainly has its risks as well. They were educated upon management, educated upon worrisome symptoms in which to return, had questions prior to discharge, and were discharged home in good condition. In evaluation treatment this patient following differential diagnoses were tinkling intracranial abnormality, fracture of the spine, subluxation, left hip fracture, sepsis, UTI, among others. Impression Primary Impression: Fall Additional Impressions: Lung nodule Pelvis fracture UTI (urinary tract infection) Departure Information Dispostion Home / Self-Care Condition GOOD Prescriptions Hydrocodone/Acetaminophen 5MG/325MG ([place] 5MG/325MG) Tab 1-2 TABLET PO Q6 Y for Pain, #20 TAB For Initial Treatment Prov: Gilmer Cruz PA-C 02/08/17 Cephalexin Monohydrate (Keflex) 500 Mg Cap 500 MG PO BID for 10 Days, #20 CAP Prov: Gilmer Cruz PA-C 02/08/17 Referrals Roque Lyn (PCP) Patient Instructions [facility] Additional Instructions You have been treated in the Emergency Department for Hip Pain. You have received pain medicine in the emergency department which impairs your ability to operate a vehicle. It is illegal for you to drive after receiving these medicines. Keflex for the UTI. 500mg BID x 10 days. First does tomorrow evening. She had 1g of Rocephin here. For pain control, you can use the following [id number] medicines (if >12 yo): NORCO one tablet every 6 hours as needed for pain. Please do not take other sources of Tylenol. Please check INR more frequently secondary to the cephalosporin and acetaminophen initiation. I encouraged no weightbearing until seen and evaluated by your team. Return to the Emergency Department if your current symptoms worsen despite treatment course outlined above. CT HEAD WITHOUT CONTRAST (CT) CLINICAL HISTORY: Head pain status post trauma COMPARISON STUDY: No previous studies for comparison. TECHNIQUE: Axial CT of the brain is performed from the vertex to the skull base. IV contrast was not administered for this examination. A dose lowering technique was utilized adhering to the principles of ALARA. CT DOSE: FINDINGS: No intra or extra-axial mass lesions are visualized. There is no CT evidence of acute cortical infarction. There is no evidence of midline shift. There is no acute hemorrhage. No calvarial fractures are visualized. There are patchy white matter hypodensities likely on a small vessel basis. There is no evidence of pathologic ventricular dilatation. There is no evidence of acute sinusitis. There is a stable 14 mm lytic focus within the right frontal calvarium (x4 years). IMPRESSION: No acute intracranial findings Electronically signed by: Benjamin Vann M.D. 02/08/2017 5:56 PM Dictated Date/Time: 02/08/2017 5:53 PM CHEST ONE VIEW PORTABLE CLINICAL HISTORY: Trauma. Hip pain. COMPARISON STUDY: 04/03/2016 FINDINGS: The heart is normal in size. No pneumothorax is visualized in the supine study. There is a 24 mm right upper lobe pulmonary nodule.[ No pleural effusions are visualized. There is no focal pulmonary consolidation. There is calcified granuloma the left lung base. There is an equivocal left upper lobe nodule. IMPRESSION: 1. Enlarging right upper lobe pulmonary nodule measuring 24 mm. 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 2. 12 mm left upper lobe pulmonary nodule versus summation. Electronically signed by: Benjamin Vann M.D. 02/08/2017 6:18 PM Dictated Date/Time: 02/08/2017 6:[address] OF THE CERVICAL SPINE CLINICAL HISTORY: Neck pain status post trauma COMPARISON STUDY: April 2014 CT DOSE: TECHNIQUE: CT scan of the cervical spine was performed from the skull base to the thoracic inlet. Images are reviewed in the axial, sagittal, and coronal planes. IV contrast was not administered for this examination. A dose lowering technique was utilized adhering to the principles of ALARA. FINDINGS: The visualized portions of the lung apices reveal no evidence of pneumothorax. The prevertebral soft tissues are normal. No fractures or subluxations are visualized. There are multilevel degenerative changes IMPRESSION: No evidence of acute fracture or traumatic subluxation. Electronically signed by: Benjamin Vann M.D. 02/08/2017 5:59 PM Dictated Date/Time: 02/08/2017 5:[address] THORACIC SPINE WITHOUT CT DOSE: CLINICAL HISTORY: Thoracic spine pain status post trauma TECHNIQUE: Helical images were acquired in the transverse plane. Sagittal and coronal reformatted images were acquired. A dose lowering technique was utilized adhering to the principles of ALARA. COMPARISON STUDY: April 2014 FINDINGS: There are multilevel degenerative changes. No acute fractures or traumatic subluxations are visualized. There are no findings to indicate a paraspinal hematoma. There is 26 mm right adrenal gland nodule which remains unchanged. There is a 24 mm right upper lobe pulmonary nodule. This nodule measured 19 mm in November 2014 There are a few additional scattered tiny pulmonary nodules not exceeding 2.5 mm in size. Also evident is a 1 cm groundglass nodule within the left upper lobe abutting the fissure. IMPRESSION: 1. Multilevel degenerative change. No acute fractures or traumatic subluxations are visualized 2. Slowly enlarging indeterminate irregular marginated solid 24 mm right upper lobe pulmonary nodule. This nodule has a two-year doubling time. 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 3. Stable 26 mm right adrenal gland nodule Electronically signed by: Benjamin Vann M.D. 02/08/2017 6:11 PM Dictated Date/Time: 02/08/2017 6:[address] LUMBAR SPINE WITHOUT CT DOSE: 4011.98 mGy.cm CLINICAL HISTORY: Back pain status post trauma TECHNIQUE: Helical images were acquired in transverse plane. Reformatted sagittal and coronal images were reviewed. A dose lowering technique was utilized adhering to the principles of ALARA. CONTRAST: No contrast was administered COMPARISON STUDY: April 2014 FINDINGS: L1-2 level: There is a circumferential disc bulge. There is mild to moderate spinal stenosis. L2-3 level: There is a circumferential disc bulge. There is moderate spinal stenosis L3-4 level: There is a circumferential disc bulge. There is severe spinal stenosis L4-5 level: There is a circumferential disc bulge. There is moderate spinal stenosis L5-S1 level: There is a mild circumferential disc bulge. There is no significant spinal or foraminal stenosis. There is right-sided nephrolithiasis. There is a 26 mm right adrenal gland nodule There is indwelling IVC filter. Multiple struts are extra luminal. There are no acute fractures or traumatic subluxations IMPRESSION: 1. No acute fractures or traumatic subluxations 2. Multilevel spondylitic change with multilevel spinal stenosis 3. Right-sided nephrolithiasis 4. Stable 26 mm right adrenal gland nodule Electronically signed by: Benjamin Vann M.D. 02/08/2017 6:03 PM Dictated Date/Time: 02/08/2017 5:59 PM PELVIS 1 OR 2 VIEW ROUTINE CLINICAL HISTORY: Left hip pain status post trauma COMPARISON STUDY: 08/28/2012 FINDINGS: Postsurgical changes involve the right hip. The bones are osteopenic. No fracture the left proximal femur are visualized. There is acute fracture the left symphysis pubis/medial left ischiopubic ring. There is no SI joint diastases. There is no symphysis diastases. IMPRESSION: Acute fracture the left symphysis pubis /medial left ischiopubic ring Electronically signed by: Benjamin Vann M.D. 02/08/2017 6:15 PM Dictated Date/Time: 02/08/2017 6:13 PM L FEMUR 7 VIEWS ROUTINE CLINICAL HISTORY: Left femur pain status post trauma COMPARISON: None. DISCUSSION: The bones are osteopenic. There are degenerative changes present within the knee. There is suspected chondrocalcinosis. Crosstable lateral views of the left hip are suboptimal. There is a subtle fracture the left symphysis pubis/medial ischio pubic ring. IMPRESSION: 1. No evidence of left femoral fracture 2. Subtle fracture of the left symphysis pubis/medial left ischiopubic ring Electronically signed by: Benjamin Vann M.D. 02/08/2017 6:32 PM Dictated Date/Time: 02/08/2017 6:31 PM Problem Qualifiers
[2017-02-08] MEDS ORDERED: CEFTRIAXONE SOD INJ 1 GM ADDVIAL IV STA (18:39)
[2017-02-08 19:41] VITALS: PULSE 66
[2017-02-08] MEDS ORDERED: CEPH500C PO (19:42)
[2017-02-08] MEDS ORDERED: HYDR-5688 PO (19:59)
[2017-02-08 20:59] VITALS: BP 158/88; O2SAT 96
--- NOTE | 2017-02-10 13:43 | Pharmacy Progress Note ---
ED Pharmacist Culture FollowUp Date of Service: Feb 10, 2017. Patient's urine cx from 02/08 is growing e coli with intermediate sensitivity to cefazolin. She is a [employer] resident who was dx with UTI based upon UA results although she did not have fever or urinary symptoms on presentation. She was discharged back to [facility] on Keflex however another antibiotic may be more appropriate based upon sensitivities. Contacted [facility] charge nurse who stated they do have a physician who could review the culture results and change antibiotic therapy. I faxed the urine cx results to [facility] per their request (fax: [phone])
== END 2017-02-08 21:01 | disposition home or self-care (01) ==
LOC: EDBD 16:40 → C.EDC 16:42
DX: S32.502A Unspecified fracture of left pubis, initial encounter for closed fracture (principal); W19.XXXA Unspecified fall, initial encounter; Y92.122 Bedroom in nursing home as the place of occurrence of the external cause; R91.1 Solitary pulmonary nodule; N39.0 Urinary tract infection, site not specified; I48.91 Unspecified atrial fibrillation; I47.1 Supraventricular tachycardia; F03.90 Unspecified dementia, unspecified severity, without behavioral disturbance, psychotic disturbance, mood disturbance, and anxiety; E11.9 Type 2 diabetes mellitus without complications; E03.9 Hypothyroidism, unspecified; R09.02 Hypoxemia; Z79.01 Long term (current) use of anticoagulants; Z79.4 Long term (current) use of insulin; Z79.899 Other long term (current) drug therapy

== ENCOUNTER → 2017-02-11 | Outpatient (CLI) | payer OTHER, MEDICARE ==
[~2017-02-11] MED LIST changes: +CEPH500C PO; +HYDR-5688 PO; -RBTDMUDL5 PO
[2017-02-11 08:50] LABS: INR 2.8 (0.9-1.1); PROTHROMBIN TIME (PATIENT) 31.6 SECONDS (9.0-12.0)
== END ==
LOC: C.LABFOXAE 08:34
PROVIDERS: ATTEND Internal Medicine
DX: I48.2 Chronic atrial fibrillation (principal)

== ENCOUNTER → 2017-02-18 | Outpatient (CLI) | payer OTHER, MEDICARE ==
[2017-02-18 10:13] LABS: INR 3.2 (0.9-1.1); PROTHROMBIN TIME (PATIENT) 35.8 SECONDS (9.0-12.0)
== END ==
LOC: C.LABFOXAE 09:19
PROVIDERS: ATTEND Internal Medicine
DX: I48.91 Unspecified atrial fibrillation (principal)

== ENCOUNTER → 2017-02-24 | Outpatient (CLI) | payer OTHER, MEDICARE ==
[~2017-02-24] MED LIST changes: -CEPH500C PO
[2017-02-24 08:48] LABS: INR 2.4 (0.9-1.1); PROTHROMBIN TIME (PATIENT) 26.1 SECONDS (9.0-12.0)
== END | disposition home or self-care (01) ==
LOC: C.LABFOXAE 08:05
PROVIDERS: ATTEND Internal Medicine
DX: I48.91 Unspecified atrial fibrillation (principal)

== ENCOUNTER → 2017-03-03 | Outpatient (CLI) | payer OTHER, MEDICARE ==
[2017-03-03 09:38] LABS: INR 2.2 (0.9-1.1); PROTHROMBIN TIME (PATIENT) 23.1 SECONDS (9.0-12.0)
== END ==
LOC: C.LABFOXAE 08:38
PROVIDERS: ATTEND Internal Medicine Hospice and Palliative Medicine
DX: I48.91 Unspecified atrial fibrillation (principal)

== ENCOUNTER → 2017-03-14 | Outpatient (CLI) | payer OTHER, MEDICARE ==
[~2017-03-14] MED LIST changes: +ACET-1693 PO; -ACET325T96 PO
[2017-03-14 09:04] LABS: INR 1.8 (0.9-1.1)
== END | disposition home or self-care (01) ==
LOC: C.LABFOXAE 08:29
PROVIDERS: ATTEND Internal Medicine
DX: I48.91 Unspecified atrial fibrillation (principal)

== ENCOUNTER → 2017-03-21 | Outpatient (CLI) | payer OTHER, MEDICARE ==
[2017-03-21 08:38] LABS: BLOOD UREA NITROGEN 28 mg/dl (7-18); CALCIUM 10.3 mg/dl (8.5-10.1); CARBON DIOXIDE 28 mmol/L (21-32); CREATININE 1.06 mg/dl (0.60-1.20); GLUCOSE 134 mg/dl (70-99); POTASSIUM 4.3 mmol/L (3.5-5.1); SODIUM 143 mmol/L (136-145)
[2017-03-21 09:14] LABS: HEMOGLOBIN A1C 6.9 % (4.5-5.6)
== END ==
LOC: C.LABFOXAE 07:47
PROVIDERS: ATTEND Nurse Practitioner Family
DX: I48.91 Unspecified atrial fibrillation (principal); E11.9 Type 2 diabetes mellitus without complications

== ENCOUNTER → 2017-03-26 | Outpatient (CLI) | payer OTHER, MEDICARE ==
[2017-03-26 08:37] LABS: HEMATOCRIT 38.6 % (37-47); HEMOGLOBIN 11.9 g/dL (12.0-16.0); MEAN CELL VOLUME 94.8 fL (80-100); MEAN CORPUSCULAR HEMOGLOBIN 29.2 pg (25-34); MEAN CORPUSCULAR HGB CONC 30.8 g/dl (32-36); MEAN PLATELET VOLUME 10.6 fL (7.4-10.4); PLATELET COUNT 205 K/uL (130-400); RED CELL DISTRIBUTION WIDTH CV 14.7 % (11.5-14.5); RED CELL DISTRIBUTION WIDTH SD 50.9 fL (36.4-46.3); WHITE BLOOD COUNT 7.69 K/uL (4.8-10.8)
[2017-03-26 09:29] LABS: BLOOD UREA NITROGEN 27 mg/dl (7-18); CALCIUM 9.7 mg/dl (8.5-10.1); CARBON DIOXIDE 27 mmol/L (21-32); CREATININE 1.05 mg/dl (0.60-1.20); GLUCOSE 122 mg/dl (70-99); POTASSIUM 4.4 mmol/L (3.5-5.1); SODIUM 141 mmol/L (136-145)
== END | disposition home or self-care (01) ==
LOC: C.LABFOXAE 08:20
PROVIDERS: ATTEND Internal Medicine
DX: E83.52 Hypercalcemia (principal); R00.0 Tachycardia, unspecified

== ENCOUNTER → 2017-04-02 | Outpatient (CLI) | payer OTHER, MEDICARE ==
[~2017-04-02] MED LIST changes: -ACET-1693 PO; +ACET325T96 PO
== END ==
LOC: C.LABFOXAE 08:48
PROVIDERS: ATTEND Internal Medicine Hospice and Palliative Medicine
DX: E83.52 Hypercalcemia (principal)

== ENCOUNTER → 2017-04-04 | Outpatient (CLI) | payer OTHER, MEDICARE ==
[2017-04-04 08:27] LABS: INR 2.1 (0.9-1.1)
== END ==
LOC: C.LABFOXAE 07:56
PROVIDERS: ATTEND Internal Medicine
DX: I48.91 Unspecified atrial fibrillation (principal)

== ENCOUNTER → 2017-04-10 | Outpatient (CLI) | payer OTHER, MEDICARE ==
[2017-04-10 08:39] LABS: CALCIUM 9.1 mg/dl (8.5-10.1)
[2017-04-10 08:46] LABS: MAGNESIUM 1.6 mg/dl (1.8-2.4)
== END | disposition home or self-care (01) ==
LOC: C.LABFOXAE 08:07
DX: E83.52 Hypercalcemia (principal)

== ENCOUNTER → 2017-04-16 | Outpatient (CLI) | payer OTHER, MEDICARE | END | disposition home or self-care (01) | LOC: C.LABFOXAE 07:47 | PROVIDERS: ATTEND Internal Medicine Hospice and Palliative Medicine | DX: E83.52 Hypercalcemia (principal) ==

== ENCOUNTER → 2017-04-23 | Outpatient (CLI) | payer OTHER, MEDICARE | END | disposition home or self-care (01) | LOC: C.LABFOXAE 08:34 | PROVIDERS: ATTEND Internal Medicine Endocrinology, Diabetes & Metabolism | DX: E83.52 Hypercalcemia (principal) ==

== ENCOUNTER → 2017-05-02 | Outpatient (CLI) | payer OTHER, MEDICARE ==
[~2017-05-02] MED LIST changes: +ACET-1693 PO; -ACET325T96 PO
[2017-05-02 08:42] LABS: INR 1.9 (0.9-1.1)
== END | disposition home or self-care (01) ==
LOC: C.LABFOXAE 08:02
PROVIDERS: ATTEND Internal Medicine Hospice and Palliative Medicine
DX: I48.91 Unspecified atrial fibrillation (principal)

== ENCOUNTER → 2017-05-16 | Outpatient (CLI) | payer OTHER, MEDICARE ==
[2017-05-16 08:39] LABS: INR 1.1 (0.9-1.1)
[2017-05-16 09:03] LABS: BLOOD UREA NITROGEN 22 mg/dl (7-18); CALCIUM 8.4 mg/dl (8.5-10.1); CARBON DIOXIDE 25 mmol/L (21-32); CREATININE 1.05 mg/dl (0.60-1.20); GLUCOSE 152 mg/dl (70-99); POTASSIUM 4.1 mmol/L (3.5-5.1); SODIUM 141 mmol/L (136-145)
== END | disposition home or self-care (01) ==
LOC: C.LABFOXAE 07:58
PROVIDERS: ATTEND Internal Medicine
DX: I48.91 Unspecified atrial fibrillation (principal)

== ENCOUNTER → 2017-05-19 | Outpatient (CLI) | payer OTHER, MEDICARE ==
[2017-05-19 08:51] LABS: INR 1.9 (0.9-1.1)
== END ==
LOC: C.LABFOXAE 08:05
PROVIDERS: ATTEND Nurse Practitioner Family
DX: I48.91 Unspecified atrial fibrillation (principal)

== ENCOUNTER → 2017-05-26 | Outpatient (CLI) | payer OTHER, MEDICARE ==
[2017-05-26 09:43] LABS: INR 2.7 (0.9-1.1)
== END ==
LOC: C.LABFOXAE 09:18
PROVIDERS: ATTEND Internal Medicine
DX: I48.91 Unspecified atrial fibrillation (principal)

== ENCOUNTER → 2017-06-02 | Outpatient (CLI) | payer OTHER, MEDICARE ==
[2017-06-02 08:55] LABS: INR 1.5 (0.9-1.1)
== END ==
LOC: C.LABFOXAE 08:16
PROVIDERS: ATTEND Nurse Practitioner Family
DX: I48.91 Unspecified atrial fibrillation (principal)

== ENCOUNTER → 2017-06-09 | Outpatient (CLI) | payer OTHER, MEDICARE ==
[2017-06-09 08:19] LABS: INR 1.9 (0.9-1.1)
== END ==
LOC: C.LABFOXAE 07:56
PROVIDERS: ATTEND Internal Medicine
DX: I48.91 Unspecified atrial fibrillation (principal)

== ENCOUNTER → 2017-06-23 | Outpatient (CLI) | payer OTHER, MEDICARE ==
[2017-06-23 11:52] LABS: INR 2.1 (0.9-1.1)
== END | disposition home or self-care (01) ==
LOC: C.LABFOXAE 09:31
PROVIDERS: ATTEND Internal Medicine
DX: I48.91 Unspecified atrial fibrillation (principal)

== ENCOUNTER → 2017-07-01 | Outpatient (CLI) | payer OTHER, MEDICARE | LOC: C.LABFOXAE 13:46 | PROVIDERS: ATTEND Internal Medicine | DX: R35.0 Frequency of micturition (principal) ==

== ENCOUNTER → 2017-07-14 | Outpatient (CLI) | payer OTHER, MEDICARE ==
[2017-07-14 09:34] LABS: INR 1.9 (0.9-1.1)
== END ==
LOC: C.LABFOXAE 08:25
PROVIDERS: ATTEND Internal Medicine
DX: I48.91 Unspecified atrial fibrillation (principal)

== ENCOUNTER → 2017-07-21 | Outpatient (CLI) | payer OTHER, MEDICARE ==
[2017-07-21 08:46] LABS: BLOOD UREA NITROGEN 21 mg/dl (7-18); CARBON DIOXIDE 26 mmol/L (21-32); GLUCOSE 68 mg/dl (70-99); POTASSIUM 3.8 mmol/L (3.5-5.1); SODIUM 142 mmol/L (136-145)
[2017-07-21 09:16] LABS: HEMOGLOBIN A1C 7.4 % (4.5-5.6)
== END ==
LOC: C.LABFOXAE 07:46
PROVIDERS: ATTEND Internal Medicine
DX: E11.9 Type 2 diabetes mellitus without complications (principal); I10 Essential (primary) hypertension

== ENCOUNTER → 2017-07-30 | Outpatient (CLI) | payer OTHER, MEDICARE ==
[2017-07-30 08:45] LABS: INR 2.4 (0.9-1.1)
== END | disposition home or self-care (01) ==
LOC: C.LABFOXAE 08:08
PROVIDERS: ATTEND Dentist Oral and Maxillofacial Surgery
DX: Z51.81 Encounter for therapeutic drug level monitoring (principal)

== ENCOUNTER → 2017-08-04 | Outpatient (CLI) | payer OTHER, MEDICARE | END | disposition home or self-care (01) | LOC: C.LABFOXAE 09:02 | PROVIDERS: ATTEND Internal Medicine | DX: E03.8 Other specified hypothyroidism (principal) ==

== ENCOUNTER → 2017-08-07 | Outpatient (CLI) | payer OTHER, MEDICARE | LOC: C.LABFOXAE 09:45 | PROVIDERS: ATTEND Internal Medicine Hospice and Palliative Medicine | DX: E21.3 Hyperparathyroidism, unspecified (principal) ==

== ENCOUNTER → 2017-08-14 | Outpatient (CLI) | payer OTHER, MEDICARE ==
[~2017-08-14] MED LIST changes: -HYDR-5688 PO
[2017-08-14 08:43] LABS: INR 2.9 (0.9-1.1)
== END ==
LOC: C.LABFOXAE 08:06
PROVIDERS: ATTEND Internal Medicine
DX: I48.91 Unspecified atrial fibrillation (principal)

== ENCOUNTER → 2017-10-16 | Outpatient (CLI) | payer OTHER, MEDICARE ==
[2017-10-16 10:03] LABS: INR 2.2 (0.9-1.1)
--- NOTE | 2017-10-29 12:42 | CODING QUERY NO DIAGNOSIS ---
TREATMENT RENDERED WITHOUT A DIAGNOSIS To promote full compliance with coding requirements relating to patient care, physician participation is requested in all cases of roller coaster designer uncertainty. Please assist us with providing a diagnosis/symptom for the test(s) below: A diagnosis/symptom was not documented on your Order. A valid diagnosis/symptom is required to bill all insurances. Please remember that we are unable to code a diagnosis of rule out, probable, possible, questionable, or suspected. Tests that require a diagnosis: DOS: 10/16/17 * PT/INR DIAGNOSIS: Provider Signature: Date: Thank you [facility] [employer] Once completed, please kindly fax back to [phone] For questions please call [phone]
== END ==
LOC: C.LABFOXAE 08:59
PROVIDERS: ATTEND Internal Medicine
DX: I48.91 Unspecified atrial fibrillation (principal); Z79.01 Long term (current) use of anticoagulants

== ENCOUNTER → 2017-10-23 | Outpatient (CLI) | payer OTHER, MEDICARE ==
[2017-10-23 15:40] LABS: BLOOD UREA NITROGEN 27 mg/dl (7-18); CARBON DIOXIDE 24 mmol/L (21-32); CREATININE 1.44 mg/dl (0.60-1.20); GLUCOSE 317 mg/dl (70-99); POTASSIUM 4.5 mmol/L (3.5-5.1); SODIUM 138 mmol/L (136-145)
== END ==
LOC: C.LABFOXAE 15:12
PROVIDERS: ATTEND Internal Medicine
DX: I48.91 Unspecified atrial fibrillation (principal)

== ENCOUNTER → 2017-11-06 | Outpatient (CLI) | payer OTHER, MEDICARE ==
[2017-11-06 08:20] LABS: INR 1.9 (0.9-1.1)
== END ==
LOC: C.LABFOXAE 07:57
PROVIDERS: ATTEND Nurse Practitioner Family
DX: E83.42 Hypomagnesemia (principal); I48.91 Unspecified atrial fibrillation